=== PATIENT | female | born 1945 | race Caucasian/White ===

== ENCOUNTER 2017-03-04 13:26 | Outpatient (CLI) | payer MEDICARE, OTHER ==
--- NOTE | 2017-03-04 14:52 | RAD ---
PA AND LATERAL CHEST RADIOGRAPH: Date: 03-04-17 History: Dyspnea. Comparison: 05-28-15 FINDINGS: Post-surgical changes related to median sternotomy and cardiac valve replacement. Cardiac silhouette is mildly enlarged. Pulmonary vasculature is within normal limits. Lungs remain clear. There has been no interval change from the prior exam. IMPRESSION: No acute cardiopulmonary process. POS: [facility]
== END 2017-03-04 13:27 | disposition home or self-care (01) ==
LOC: RAD 13:26
PROVIDERS: ATTEND Internal Medicine Critical Care Medicine
DX: R06.00 Dyspnea, unspecified (principal)
CPT/HCPCS: 71020

== ENCOUNTER 2017-07-15 09:08 | Outpatient (CLI) | payer MEDICARE, OTHER ==
--- NOTE | 2017-07-15 10:24 | RAD ---
LUMBAR SPINE THREE VIEWS: History: M54.16 Lumbar radiculopathy. Low back pain. Comparison: MRI 12-02-16 FINDINGS: There is moderate degenerative disease throughout the lumbar spine with degenerative disc space heigh t loss. Anterolisthesis of L4 over L5 approximately 4 mm in the neutral position with no significant translation with flexion or extension. No fracture. No malalignment. Laminectomy changes L3-5. IMPRESSION: 4 mm anterolisthesis of L4 over L5 without translation with flexion or extension. POS: [facility]
--- NOTE | 2017-07-15 11:24 | MRI ---
MRI LUMBAR SPINE WITHOUT CONTRAST: Date; 07/15/17 HISTORY: M54.16, lumbar radiculopathy. COMPARISON: Lumbar spine radiograph dated 07/15/17. MRI lumbar spine dated 12/02/16. FINDINGS: Kidneys appear to be slightly atrophic. The aortic contour is nonaneurysmal. No retroperitoneal adeno robert. No hydronephrosis. Conus medullaris terminates near the mid L1 vertebral body. Levels are as follows: T12-L1: Low grade circumferential disc bulge. No neural foraminal or spinal canal narrowing. L1-2: Mild degenerative disc space height loss. Circumferential disc bulge. Mild facet arthrosis. Spinal ca nal at this level measures over 1.0 cm. No significant neural foraminal narrowing. L2-3: Moderate to severe degenerative disc space height loss. Circumferential disc bulge. Moderate facet ar throsis. Moderate bilateral neural foraminal narrowing. There are laminectomy changes at this level. L3-4: Moderate degenerative disc space height loss. Circumferential disc bulge. There is moderate to severe bilateral neural foraminal narrowing. This is predominantly due to hypertrophic facet changes. The s nina canal is not significantly narrowed. L4-5: There is anterolisthesis of L4 over L5. Severe facet arthropathy. Moderate to severe bilateral neural foraminal narrowing with abutment of the exiting left nerve root. Low grade anterolisthesis. L5-S1: Moderate facet arthropathy. Moderate to severe facet arthrosis. The facet changes cause moderate to s evere bilateral neural foraminal narrowing. No significant spinal canal narrowing. IMPRESSION: 1. Multifocal neural foraminal narrowing as described above. 2. Low grade L4 over L5 anterolisthesis. 3. No significant spinal canal narrowing. POS: [facility]
== END 2017-07-15 09:09 | disposition home or self-care (01) ==
LOC: TBSIIMAG 09:08
PROVIDERS: ATTEND Anesthesiology Pain Medicine
DX: M54.16 Radiculopathy, lumbar region (principal); M43.16 Spondylolisthesis, lumbar region; M99.83 Other biomechanical lesions of lumbar region
CPT/HCPCS: 72100; 72148

== ENCOUNTER 2017-07-27 09:08 | Outpatient (CLI) | payer MEDICARE, OTHER | END 2017-07-27 09:09 | disposition home or self-care (01) | LOC: BICMAMMO 09:08 | PROVIDERS: ATTEND Obstetrics & Gynecology | DX: Z12.31 Encounter for screening mammogram for malignant neoplasm of breast (principal); Z80.3 Family history of malignant neoplasm of breast | CPT/HCPCS: 77063; 77067 ==

== ENCOUNTER 2018-04-04 08:11 | Outpatient (CLI) | payer MEDICARE, OTHER ==
--- NOTE | 2018-04-04 10:23 | MRI ---
LEFT HIP MRI WITHOUT IV CONTRAST: History: Trochanteric bursitis, left hip, left hip pain. FINDINGS: Total right hip replacement changes are noted. There are some arthrosis changes involving the left hi p joint with some generalized articular cartilage loss. Poorly defined significantly degenerated labr um. Some subchondral marrow signal of the femoral head with an appearance that could suggest insuffic iency type fracture with some marrow signal extending into the femoral neck. There is some fatty davila ge with mild associated edema within the gluteus minimum muscle, possibly mild strain versus some den otation change. Tendinopathy of the gluteus minimus and gluteus medius tendon insertions. Very mild f at stranding in the region of the trochanteric bursa but no significant abnormal fluid. Moderate join t effusion. IMPRESSION: Left hip joint space loss, evidence for arthrosis. Minimal focal subchondral abnormal signal, evidenc e for an insufficiency type fracture with some abnormal marrow signal extending into the femoral neck . Fatty change in the gluteus minimus muscle with some minimal associated increased STIR signal, poss ibly mild stranding versus some denotation change. Very mild fat stranding in the trochanteric bursal region without evidence for abnormal bursal fluid. Moderate joint effusion. POS: [facility]
== END 2018-04-04 08:12 | disposition home or self-care (01) ==
LOC: BICMRI 08:11
PROVIDERS: ATTEND Anesthesiology Pain Medicine
DX: M70.62 Trochanteric bursitis, left hip (principal); M16.12 Unilateral primary osteoarthritis, left hip; M25.452 Effusion, left hip; M84.459A Pathological fracture, hip, unspecified, initial encounter for fracture

== ENCOUNTER 2018-11-22 13:13 | Inpatient (IN) | payer MEDICARE, OTHER ==
--- NOTE | 2018-11-22 15:01 | RAD ---
RIGHT HIP 2 VIEWS: Date: 11/22/18 HISTORY: Fall. Right hip pain. FINDINGS/IMPRESSION: There are postop changes of total hip arthroplasty in good position and alignment. No fracture or dis location identified. POS: [facility]
[2018-11-22] MEDS ORDERED: Acetaminophen 500 MG TAB ONE (15:05)
--- NOTE | 2018-11-22 15:43 | RAD ---
AP PELVIS: HISTORY: Fall, right hip pain. FINDINGS/IMPRESSION: A right total hip arthroplasty is present in good position and alignment. There are degenerative jessica nges in the lower lumbar spine and the left hip joint. No acute fracture or dislocation is identifie d. POS: [facility]
[2018-11-22 15:57] LABS: #Eosinphils 0.4 thou/uL (0.0-0.7); #Monocytes 0.6 thou/uL (0.11-0.59); #Neutrophils 8.1 thou/uL (1.40-6.50); %Basophils 0.2 % (0.0-1.0); %Eosinophils 3.6 % (0.0-10.0); %Lymphocytes 9.9 % (21.0-51.0); %Monocytes 6.1 % (0.0-10.0); %Neutrophils 80.3 % (42.0-75.0); Hemoglobin 11.2 g/dL (12.0-16.0); Mean Corpuscular HGB CONC 32.5 g/dL (32.0-36.0); Mean Corpuscular Hemoglobin 30.2 pg (27.0-31.0); Mean Corpuscular Volume 92.7 fL (78.0-98.0); Platelet Count 168 thou/uL (130-400); RBC Distribution Width 13.6 % (11.5-14.5); Red Blood Cell (RBC) Count 3.72 mill/uL (4.20-5.40); White Blood Cell (WBC) Count 10.1 thou/uL (4.8-10.8)
[2018-11-22 16:20] LABS: ALT (SGPT) 17 U/L (8-55); AST (SGOT) 22 U/L (5-34); Albumin 3.9 g/dL (3.4-4.8); Alkaline Phosphatase 64 U/L (40-150); Anion Gap 13 mmol/L (10-20); BUN (Urea Nitrogen) 37 mg/dL (9.8-20.1); Bilirubin, Total 0.3 mg/dL (0.2-1.2); Calc. Creatinine Clearance 0 mL/min (70-130); Calcium 9.5 mg/dL (7.8-10.44); Carbon Dioxide 26 mmol/L (23-31); Chloride 104 mmol/L (98-107); Estimated GFR-MDRD 26; Globulin 2.7 g/dL (2.4-3.5); Glucose 98 mg/dL (83-110); Potassium 4.7 mmol/L (3.5-5.1); Protein, Total 6.6 g/dL (6.0-8.3); Sodium 138 mmol/L (136-145)
--- NOTE | 2018-11-22 18:22 | CT ---
CT right hip noncontrast HISTORY: Fall. Right hip injury. Findings: There is less than 3 mm greatest displacement involving a comminuted fracture of the latera l aspect of the right upper femur, primarily the greater trochanter. It is at the level of the femoral stem component, although there is no perihardware lucency. Acetabular component is well-seate d. IMPRESSION: Comminuted minimally displaced right proximal femur fracture involving primarily the grea ter trochanter, around the femoral component of the hip prosthesis without evidence of hardware loosening. Findings were called to Dr. Xiao in the emergency department at 1817 hours. Code CR. Transcribed Date/Time: 11/22/2018 6:44 PM
[2018-11-22] MEDS ORDERED: Morphine 4 MG/ML VIAL ONE (18:27)
--- NOTE | 2018-11-22 18:48 | RAD ---
Right knee 4 views HISTORY: Fall. Knee injury. FINDINGS: Joint spaces are preserved. Osseous structures are demineralized. No acute fracture,, or fl uid distention of the suprapatellar bursa. IMPRESSION: No acute osseous abnormalities are demonstrated.
[2018-11-22] MEDS ORDERED: Dextrose 50% Abboject 50 ML SYRINGE SLOW IVP PRN (21:39)
[2018-11-22] MEDS ORDERED: hydrALAZINE 20 MG/ML VIAL SLOW IVP PRN (21:39)
[2018-11-22] MEDS ORDERED: Dextrose 5% in Water 1,000 ML IV PRN (21:39)
[2018-11-22] MEDS ORDERED: HumaLOG 300 UNITS/3 ML VIAL SC PRN (21:39)
[2018-11-22] MEDS ORDERED: traMADol HCl 50 MG TAB PO PRN (21:46)
[2018-11-22] MEDS ORDERED: Gabapentin 300 MG CAP PO SCH (21:48)
[2018-11-22] MEDS ORDERED: Sodium Chloride 0.9% 500 ML IV SCH (22:00)
[2018-11-22] MEDS ORDERED: Acetaminophen 325 MG TAB PO SCH (22:00)
[2018-11-22] MEDS ORDERED: traMADol HCl 50 MG TAB PO SCH (22:00)
[2018-11-22] MEDS ORDERED: Sodium Chloride 0.9% 1,000 ML IV SCH (22:00)
[2018-11-22] MEDS ORDERED: Acetaminophen/Codeine 30-300mg Tablet PO SCH (22:00)
--- NOTE | 2018-11-22 22:51 | HP ---
HISTORY OF PRESENT ILLNESS: Ms. Burger is a 73-year-old female, coming to the ER for evaluation of a mechanical fall next to a pool. The patient reports she has been ambulating well before the fall. She went to the pool today and she stripped and fell on her right side. She did not hit her head or loss of consciousness. After the fall , she felt excruciating pain of the right femur and she could not walk and bearing weight. She went to the ER. Upon arrival, she was awake and alert. GCS 15. Vital signs stable. Complain of pain of the right hip. Patient relates no pain in other location. PAST MEDICAL HISTORY: The patient has history of diabetes, hypertension. PAST SURGICAL HISTORY: Right hip replacement 2 years ago, ankle fracture a few years ago with ORIF bilateral, replacement of mitral valve and with no anticoagulation, 5 years ago. SOCIAL HISTORY: The patient lives at home with her . The patient ambulates well independently. The patient is retired and she denies using drugs, alcohol , or smoking. CURRENT MEDICATION: REVIEW OF SYSTEMS: Noncontributory except per HPI. PHYSICAL EXAMINATION: GENERAL: The patient is lying down in bed, comfortable, with no acute respiratory distress. SKIN: [place], warm. VITAL SIGNS: Heart rate 74, blood pressure 102/70, O2 saturation 95% on room air, respiratory rate 18, and temperature 98.9. HEENT: Atraumatic. No bruising. NECK: Trachea midline. No bruising. Nontender. CHEST: Nontender. No deformity. Equal breath sounds, clear. BREASTS: Atraumatic. HEART: Regular rate and rhythm. ABDOMEN: Atraumatic, nontender. No mass. Normal bowel sounds. PELVIS: Stable, nontender. No deformity. BACK: Nontender. No deformity. EXTREMITIES: Right hip pain to touch. Limited range of motion due to pain. NEUROVASCULAR: Intact x4. NEUROLOGIC: No focal neurologic deficits. DIAGNOSES: 1. Status post mechanical ground level fall. 2. Right femur fracture around previous prosthetic right hip replacement. 3. History of diabetes, hypertension, depression, mitral valve replacement with Biovalve with no anticoagulation. PLAN: The patient was discussed with Dr. Campuzano and Dr. Lee. The patient had right hip replacement with Dr. Campuzano [address] Campuzano anticipated nonoperative treatment at this time with pain control. Dr. Campuzano requested admit to Trauma Service. The patient will be admitted to nonsurgical floor for pain control and waiting for placement in rehabilitation facility. ER doctor did call rehab prior to calling Trauma Service. Rehab is full at the moment. Initiate pain control, initiate DVT/gastritis prophylaxis. The patient will be working with PT/OT tomorrow to initiate procedure for placement in rehabilitation facility. Job ID: [id number] [facility]
[2018-11-22] MEDS ORDERED: Morphine 4 MG/ML VIAL SLOW IVP ONE (23:00)
[2018-11-23] MEDS ORDERED: HumaLOG 300 UNITS/3 ML VIAL SC PRN (00:15)
[2018-11-23] MEDS: traMADol HCl 50 MG TAB PO SCH ×4 (01:12→12:19)
[2018-11-23 02:12] VITALS: BMI 30.7
[2018-11-23 05:31] LABS: #Eosinphils 0.3 thou/uL (0.0-0.7); #Monocytes 0.7 thou/uL (0.11-0.59); #Neutrophils 5.2 thou/uL (1.40-6.50); %Basophils 0.3 % (0.0-1.0); %Eosinophils 3.5 % (0.0-10.0); %Lymphocytes 14.5 % (21.0-51.0); %Monocytes 9.2 % (0.0-10.0); %Neutrophils 72.5 % (42.0-75.0); Hemoglobin 10.4 g/dL (12.0-16.0); Mean Corpuscular HGB CONC 32.8 g/dL (32.0-36.0); Mean Corpuscular Hemoglobin 31.1 pg (27.0-31.0); Mean Corpuscular Volume 94.6 fL (78.0-98.0); Mean Platelet Volume 7.6 fL (7.4-10.4); Platelet Count 147 thou/uL (130-400); RBC Distribution Width 13.6 % (11.5-14.5); Red Blood Cell (RBC) Count 3.34 mill/uL (4.20-5.40); White Blood Cell (WBC) Count 7.2 thou/uL (4.8-10.8)
[2018-11-23 05:41] LABS: Phosphorus 4.5 mg/dL (2.3-4.7)
[2018-11-23 05:53] LABS: Anion Gap 14 mmol/L (10-20); BUN (Urea Nitrogen) 43 mg/dL (9.8-20.1); Calc. Creatinine Clearance 29 mL/min (70-130); Calcium 8.3 mg/dL (7.8-10.44); Carbon Dioxide 25 mmol/L (23-31); Chloride 106 mmol/L (98-107); Estimated GFR-MDRD 23; Glucose 144 mg/dL (83-110); Potassium 4.6 mmol/L (3.5-5.1); Sodium 140 mmol/L (136-145)
[2018-11-23] MEDS: Acetaminophen 325 MG TAB PO SCH ×2 (05:53→12:19)
[2018-11-23] MEDS ORDERED: Levothyroxine Sodium 112 MCG TAB PO SCH (06:00)
[2018-11-23] MEDS ORDERED: Sodium Chloride 0.9% 500 ML IV SCH (07:45)
[2018-11-23] MEDS ORDERED: Senokot S 8.6-50 MG TAB PO SCH (09:00)
[2018-11-23] MEDS ORDERED: hydrALAZINE 25 MG TAB PO SCH (09:00)
[2018-11-23] MEDS ORDERED: Famotidine 20 MG TAB PO SCH (09:00)
[2018-11-23] MEDS ORDERED: Carvedilol 6.25 MG TAB PO SCH (09:00)
[2018-11-23] MEDS ORDERED: Polyethylene Glycol 3350 17 GM Packet PO SCH (09:00)
[2018-11-23] MEDS ORDERED: Cyclobenzaprine 10 MG TAB PO SCH (09:00)
[2018-11-23] MEDS ORDERED: Aspirin 81 mg Enteric Coated Tablet PO SCH (09:00)
[2018-11-23] MEDS ORDERED: Gabapentin 300 MG CAP PO SCH (09:00)
[2018-11-23] MEDS ORDERED: Saccharomyces boulardii 250 MG CAP PO SCH (09:00)
[2018-11-23] MEDS ORDERED: Amlodipine 5 MG TAB PO SCH (09:00)
[2018-11-23 11:35] VITALS: BP 129/77; TEMP 98.6
--- NOTE | 2018-11-23 18:00 | CON ---
DATE OF CONSULTATION: 11/23/2018 HISTORY OF PRESENT ILLNESS: Ms. Burger is a 73-year-old female who I performed a right total hip replacement 2 years ago. The patient was in a swimming pool, she got out of the swimming pool, slipped and fell onto her right hip. She was brought to the emergency room because she was unable to ambulate and because of the pain. X-ray showed a fracture of the greater trochanter of the right hip. The fracture was in good alignment. The patient was admitted for pain control and to be placed in the rehab. PHYSICAL EXAMINATION: The patient is tender over the lateral aspect of the right hip. Any attempts moving the right hip causes pain. The right lower extremity is neurovascularly intact. IMPRESSION: Nondisplaced greater trochanteric fracture of the right hip and a previous right total hip replacement. PLAN: The patient does not require surgery for this. We would allow the fracture to heal. She will need to go to rehab to relearn how to get out of bed and ambulate. The patient may weightbear as tolerated on the right lower extremity. She will follow up in my office after discharge from rehab. Job ID: [id number]
[2018-11-23] MEDS ORDERED: Rosuvastatin 20 MG TAB PO SCH (21:00)
[2018-11-23] MEDS ORDERED: Insulin Glargine 60 UNITS in Pre-Filled Syringe 1 EACH SC SCH (21:00)
[2018-11-23] MEDS ORDERED: Non-Formulary Item 1 EACH (Insulin Glargine,Hum.Rec.Anlog [Lantus Solostar] 60 UNIT) SQ SCH (21:00)
--- NOTE | 2018-11-24 05:22 | DIS ---
DATE OF ADMISSION: 11/22/2018 DATE OF DISCHARGE: 11/23/2018 ADMISSION DIAGNOSES: 1. Status post ground level fall. 2. Right proximal femur fracture, periprosthetic. 3. History of diabetes, hypertension, depression, mitral valve replacement with Biovalve with no anticoagulation. CONSULTATIONS: Dr. Campuzano. PROCEDURES: None. SUMMARY: The patient is a 73-year-old woman, who was reportedly in her pool. When she actually in her pool, she slipped and fell landing on her right hip. The patient was brought to the emergency department, where she underwent evaluation and examination and was noted to have the above injury. After discussion with Dr. Campuzano, the surgeon who had done her right hip surgery, he noted that the greater trochanteric fracture was away from the prosthetic device and would only require nonoperative management with pain control and physical therapy. Arrangements were made for the patient to go to inpatient rehab. At the time of discharge, the patient's pain was controlled. She was tolerating a diet and she had begun working with Physical and Occupational Therapy. The patient will follow up with Dr. Campuzano in 2 to 3 weeks, sooner as needed. Job ID: [id number]
== END 2018-11-23 14:00 | DRG 536 ==
LOC: ERS 13:13 → SURG A 21:39
PROVIDERS: ADMIT Specialist; ATTEND Specialist
DX: S72.144A Nondisplaced intertrochanteric fracture of right femur, initial encounter for closed fracture (principal); M97.01XA Periprosthetic fracture around internal prosthetic right hip joint, initial encounter; E11.9 Type 2 diabetes mellitus without complications; I10 Essential (primary) hypertension; Z96.641 Presence of right artificial hip joint; Z98.890 Other specified postprocedural states; F32.9 Major depressive disorder, single episode, unspecified; Z95.2 Presence of prosthetic heart valve; W01.0XXA Fall on same level from slipping, tripping and stumbling without subsequent striking against object, initial encounter; Y93.89 Activity, other specified; Y92.34 Swimming pool (public) as the place of occurrence of the external cause
CPT/HCPCS: 36415; 36416; 72170; 80048; 80053; 83735; 84100; 85025; 94640; J2270; J7620

== ENCOUNTER 2018-11-26 22:03 | Inpatient (IN) | payer MEDICARE, OTHER ==
--- NOTE | 2018-11-26 22:34 | RAD ---
EXAM: Single view of the chest HISTORY: Shortness of breath COMPARISON: 11/25/2018 FINDINGS: Single view of the chest shows an enlarged but stable cardiomediastinal silhouette. The pa tient is status post sternotomy. There is no evidence of consolidation, mass, or pleural effusion. The bones are unremarkable. IMPRESSION: No evidence of acute cardiopulmonary disease
[2018-11-26 22:41] LABS: #Eosinphils 0.3 thou/uL (0.0-0.7); #Lymphocytes 0.9 thou/uL (1.20-3.40); #Monocytes 0.6 thou/uL (0.11-0.59); #Neutrophils 4.9 thou/uL (1.40-6.50); %Basophils 0.3 % (0.0-1.0); %Eosinophils 5.1 % (0.0-10.0); %Lymphocytes 13.1 % (21.0-51.0); %Monocytes 9.4 % (0.0-10.0); %Neutrophils 72.1 % (42.0-75.0); Hemoglobin 9.1 g/dL (12.0-16.0); Mean Corpuscular HGB CONC 31.7 g/dL (32.0-36.0); Mean Corpuscular Volume 94.6 fL (78.0-98.0); Mean Platelet Volume 7.5 fL (7.4-10.4); Platelet Count 164 thou/uL (130-400); RBC Distribution Width 13.3 % (11.5-14.5); Red Blood Cell (RBC) Count 3.02 mill/uL (4.20-5.40); White Blood Cell (WBC) Count 6.8 thou/uL (4.8-10.8)
[2018-11-26 22:58] LABS: ALT (SGPT) 19 U/L (8-55); AST (SGOT) 21 U/L (5-34); Albumin 3.5 g/dL (3.4-4.8); Alkaline Phosphatase 73 U/L (40-150); Anion Gap 12 mmol/L (10-20); BUN (Urea Nitrogen) 37 mg/dL (9.8-20.1); Bilirubin, Total 0.4 mg/dL (0.2-1.2); CK (CPK) 278 U/L (29-168); Calc. Creatinine Clearance 0 mL/min (70-130); Calcium 8.9 mg/dL (7.8-10.44); Carbon Dioxide 27 mmol/L (23-31); Chloride 100 mmol/L (98-107); Estimated GFR-MDRD 23; Globulin 2.9 g/dL (2.4-3.5); Glucose 209 mg/dL (83-110); Potassium 4.5 mmol/L (3.5-5.1); Protein, Total 6.4 g/dL (6.0-8.3); Sodium 134 mmol/L (136-145)
[2018-11-26 23:15] LABS: CKMB 2.3 ng/mL (0-6.6)
[2018-11-26 23:38] LABS: Bacteria/HPF None Seen HPF (None Seen); Bilirubin Negative (Negative); Blood, Urine Negative (Negative); Clarity Clear (Clear); Glucose, Urine (Dipstick) Normal (Negative); Leukocyte 250 Leu/uL (Negative); Nitrite Negative (Negative); Protein, Urine (Dipstick) 10 mg/dL (Neg-Trace); RBC/HPF None Seen HPF (0-3); Squamous Epithelial 0-3 HPF (0-3); Urobilinogen Normal mg/dL (Less than 2)
--- NOTE | 2018-11-26 23:58 | CT ---
EXAM: CT brain without contrast HISTORY: Altered mental status with slurred speech COMPARISON: 11/25/2016 TECHNIQUE: Multiple contiguous axial images were obtained and a CT of the brain without contrast. FINDINGS: There are scattered hypodensities in the subcortical and periventricular white matter consi stent with small vessel ischemic disease. There is no evidence of hydrocephalus, intracranial hemorrhage, or extra-axial fluid collection. The calvarium and overlying soft tissues are unremarkable. The visualized paranasal sinuses and masto id air cells are well aerated. IMPRESSION: No evidence of acute intracranial abnormality
[2018-11-27 02:23] VITALS: BMI 33.3
[2018-11-27 02:28] LABS: Troponin I 0.027 ng/mL (< 0.028)
[2018-11-27] MEDS ORDERED: Heparin 25,000 units/D5W 500 ML IVPB SCH (02:45)
[2018-11-27] MEDS ORDERED: Heparin 10,000 UNITS/ 10 ML VIAL SLOW IVP SCH (02:45)
[2018-11-27 02:49] LABS: Actual Bicarbonate (HCO3a) 27.1 mEq/L (22-28); Base Excess (BEa) 1.4 mEq/L (-2.0 to +3.0); CO2 Tension 47.9 mmHg (35.0-45.0); Calcium, Ionized 1.17 mmol/L (1.12-1.30); Carboxyhemoglobin (COHb) 0.8 gm% (0.0-3.0); Hemoglobin (Hb) 9.7 g/dL (12.0-16.0); O2 Tension (PaO2) 68.8 mmHg (> 70.0); Potassium - ABG Lab 4.61 mmol/L (3.70-5.30); pH, Arterial 7.37 (7.35-7.45)
[2018-11-27 02:51] LABS: ALV-art Gradient 99.485 (0-20); Puncture Site LRA
[2018-11-27] MEDS ORDERED: Dextrose 50% Abboject 50 ML SYRINGE SLOW IVP PRN (02:59)
[2018-11-27] MEDS ORDERED: HumaLOG 300 UNITS/3 ML VIAL SC PRN (02:59)
[2018-11-27] MEDS ORDERED: Dextrose 5% in Water 1,000 ML IV PRN (02:59)
[2018-11-27 03:35] LABS: Hemoglobin 9.1 g/dL (12.0-16.0); Platelet Count 169 thou/uL (130-400)
[2018-11-27 04:05] LABS: Troponin I 0.023 ng/mL (< 0.028)
[2018-11-27] MEDS ORDERED: traZODone HCl 50 MG TAB PO PRN (10:26)
[2018-11-27] MEDS ORDERED: Acetaminophen 500 MG TAB PO PRN (10:26)
[2018-11-27] MEDS: traMADol HCl 50 MG TAB PO SCH ×2 (12:06→18:36)
[2018-11-27] MEDS: Phenazopyridine HCl 97.5 MG TABLET PO SCH ×2 (12:08→18:30)
[2018-11-27 12:22] LABS: PTT Greater than 250.0 SEC (22.9-36.1)
[2018-11-27] MEDS ORDERED: hydrALAZINE 20 MG/ML VIAL SLOW IVP PRN (12:26)
[2018-11-27] MEDS ORDERED: Carvedilol 6.25 MG TAB PO SCH (12:45)
[2018-11-27] MEDS ORDERED: Gabapentin 300 MG CAP PO SCH (12:45)
[2018-11-27] MEDS ORDERED: Amlodipine 5 MG TAB PO SCH (12:45)
--- NOTE | 2018-11-27 13:53 | PDOC.HOSPP ---
- Subjective Encounter Date: 11/27/18 Encounter Time: 13:48 Subjective: Recently admitted here for a fall with fracture around the greater trochanter peripheral to the hip replacement prosthesis steph. Went to rehab, but having SOB and apparently had SaO2 in the 70's. She has been coughing. She has had dyspnea with minimal exertion for a while. She has seen Dr. Mcfadden in the past and had PFT's. She says she was diagnosed with seasonal asthma. Her daughter also reports that there are times when she (the patient) has been confused. She saw that again with this episode of hypoxia and now believes that the episodes were all likely to be related to hypoxia episodes. Patient has also had some prior problems with epistaxis. Had cautery. Had a small bit of epistaxis this morning. - Objective Vital Signs & Weight: Vital Signs (12 hours) Temp Pulse Resp BP BP Pulse Ox 11/27/18 13:30 82 11/27/18 13:29 148/66 H 11/27/18 12:50 98.4 F 82 16 189/87 H 99 11/27/18 08:16 97.8 F 81 16 173/91 H 99 11/27/18 08:00 99 11/27/18 05:30 98.6 F 76 18 159/77 H 98 Weight Weight 193 lb 12.581 oz Result Diagrams: 11/27/18 03:19 11/26/18 22:25 Additional Labs: Accuchecks 11/27/18 11/27/18 11/27/18 11:18 08:26 05:25 POC Glucose 336 H 266 H 246 H Hospitalist ROS - Medication Medications: Active Medications Generic Name Dose Route Start Last Admin Trade Name Freq PRN Reason Stop Dose Admin Amlodipine Besylate 2.5 mg 11/27/18 12:45 11/27/18 13:30 Norvasc PO 11/27/18 14:00 2.5 mg NOW FILIPPO Administration Carvedilol 6.25 mg 11/27/18 12:45 11/27/18 13:29 Coreg PO 11/27/18 14:00 6.25 mg NOW FILIPPO Administration Gabapentin 600 mg 11/27/18 12:45 11/27/18 13:29 Neurontin PO 11/27/18 14:00 600 mg NOW FILIPPO Administration Heparin Sodium (Porcine) 0 units 11/27/18 02:45 11/27/18 04:59 Heparin 1,000 Units/Ml (10 Ml) SLOW IVP 7,032 unit ASDIR FILIPPO Administration Protocol Heparin Sodium/Dextrose 500 mls @ 0 mls/hr 11/27/18 02:45 11/27/18 05:02 Heparin 25,000 Units/D5w 500 Ml IVPB 500 mls INF FILIPPO Administration Protocol Per Protocol Levofloxacin 750 mg/ Device 150 mls @ 100 mls/hr 11/27/18 03:00 11/27/18 03: 34 IVPB 150 mls Q2D FILIPPO Administration Insulin Human Lispro 0 units 11/27/18 02:59 11/27/18 12:08 Humalog SC 5 units .MILD SLIDING SCALE PRN Administration Mild Correctional Scale Phenazopyridine HCl 97.5 mg 11/27/18 13:00 11/27/18 12:08 Azo Standard PO 97.5 mg PC FILIPPO Administration Sertraline HCl 50 mg 11/27/18 12:45 11/27/18 13:30 Zoloft PO 11/27/18 14:00 50 mg NOW FILIPPO Administration Tramadol HCl 50 mg 11/27/18 12:00 11/27/18 12:06 Ultram PO Not Given Q6HR FILIPPO - Exam General Appearance: NAD, awake alert General - other findings: Obese Neck: supple Heart: RRR, no murmur, no gallops Respiratory: CTAB, rales, wheezes Gastrointestinal: soft, non-tender, non-distended, normal bowel sounds Extremities: no cyanosis, no clubbing, no edema Skin: normal turgor Musculoskeletal: normal tone, normal strength Psychiatric: normal affect, normal behavior, A&O x 3 Hosp A/P (1) Acute respiratory failure with hypoxia Code(s): J96.01 - ACUTE RESPIRATORY FAILURE WITH HYPOXIA Status: Acute (2) Asthma Code(s): J45.909 - UNSPECIFIED ASTHMA, UNCOMPLICATED Status: Acute (3) Hip fracture Code(s): S72.009A - FRACTURE OF UNSP PART OF NECK OF UNSP FEMUR, INIT Status: Acute (4) DM2 (diabetes mellitus, type 2) Status: Acute (5) HLD (hyperlipidemia) Code(s): E78.5 - HYPERLIPIDEMIA, UNSPECIFIED Status: Acute (6) S/P hip replacement Code(s): Z96.649 - PRESENCE OF UNSPECIFIED ARTIFICIAL HIP JOINT Status: Acute (7) CKD (chronic kidney disease), stage IV Code(s): N18.4 - CHRONIC KIDNEY DISEASE, STAGE 4 (SEVERE) Status: Acute - Plan Appears to have some reactive airway disease. On nebs. Will make scheduled as she cannot tell when she is wheezing. Avoiding steroids given the DM and the fracture. VQ scan pending. On heparin gtt. Discussed with Dr. Mcfadden.
[2018-11-27] MEDS: Cyclobenzaprine 10 MG TAB PO SCH ×2 (14:35→21:17)
[2018-11-27 14:58] LABS: PTT 128.9 SEC (22.9-36.1)
--- NOTE | 2018-11-27 15:27 | CON ---
DATE OF CONSULTATION: 11/27/2018 CONSULTING PHYSICIAN: Dr. Duran. REASON FOR CONSULTATION: Shortness of breath and hypoxemia. HISTORY OF PRESENT ILLNESS: This is a 73-year-old female with a known history of chronic persistent asthma, who presents with increasing dyspnea. She was recently hospitalized with a right upper leg fracture of a hip prosthesis. She was sent to rehab. She subsequently became short of breath and was sent back. PAST MEDICAL HISTORY: 1. Chronic persistent asthma. 2. Question of hypersensitivity pneumonitis. 3. Previous DVT. 4. Diabetes mellitus. 5. Hypertension. PAST SURGICAL HISTORY: 1. Right hip replacement. 2. Ankle fracture. 3. Mitral valve replacement, porcine. SOCIAL HISTORY: Nonsmoker. Does not consume alcohol or use illicit drugs. MEDICATIONS: Prior to admission; 1. She is supposed to be taking Symbicort 160/4.5 two puffs twice daily, but is not doing that regularly. 2. She is on DuoNeb every 4 hours as needed, but does not use that regularly. Other medications include: 1. Guaifenesin. 2. Loperamide. 3. Tums. 4. Tylenol. 5. Trazodone. 6. Simethicone. 7. Lipitor. 8. Norvasc. 9. Senna. 10. MiraLAX. 11. Mucinex. 12. Humalog insulin. 13. Neurontin. 14. Flexeril. 15. Coreg. 16. Ultram. 17. Zoloft. 18. Levothyroxine. 19. Lantus insulin. See doses under medication list in chart. REVIEW OF SYSTEMS: Twelve-point review of system otherwise negative. PHYSICAL EXAMINATION: VITAL SIGNS: O2 sats 99% on 2 L, temperature 98.4, pulse 82, blood pressure 140/66, respiratory rate 16. GENERAL: She is awake and alert, in no distress. HEENT: Pupils are reactive. Sclerae anicteric. Oropharynx clear. NECK: No adenopathy or JVD. LUNGS: She has bilateral moderate expiratory wheezing with prolonged expiratory phase. CARDIAC: S1, S2. Regular without murmur. ABDOMEN: Soft, nontender. EXTREMITIES: No clubbing, cyanosis, or edema. LABORATORY DATA: White blood cell count 6.8, hemoglobin 9.1, hematocrit 28.9, platelet count 169. PTT is greater than 250. PH 7.37, pCO2 of 47, pO2 of 68. Sodium 134, potassium 4.5, chloride 100, CO2 of 27, BUN 37, creatinine 2.1, glucose 209. BNP 397. IMAGING STUDIES: Her chest x-ray is really nondescript. ASSESSMENT: 1. Asthma with exacerbation. 2. Rule out pulmonary embolism. 3. Chronic renal insufficiency secondary to diabetes mellitus. PLAN: 1. Treat the asthma exacerbation with steroids, schedule bronchodilators, low-flow oxygen, and the Dulera. 2. Agree with ventilation-perfusion scan to rule out pulmonary embolism. 3. She is empirically anticoagulated, so we can rule that out. I will follow with you. Job ID: [id number]
--- NOTE | 2018-11-27 16:26 | NM ---
EXAM: Nuclear medicine VQ scan COMPARISON: Chest x-ray 11/26/2018 HISTORY: Shortness of breath and elevated d-dimer TECHNIQUE: A VQ scan was performed in standard fashion. Ventilation images were obtained using 14.5 m Ci of xenon-133. Perfusion images were obtained using 5.6 mCi of technetium 99m MAA. FINDINGS: Ventilation: Breath hold, equilibrium, and washout phases are unremarkable. No ventilatory defects ar e seen. No air trapping is seen. Perfusion: No small, medium, or large perfusion defects are seen. IMPRESSION: Normal VQ scan
[2018-11-27] MEDS: HumaLOG 300 UNITS/3 ML VIAL SC PRN ×2 (18:29→21:36)
[2018-11-27] MEDS: methylPREDNISolone Sod Succ 40 MG VIAL IVP SCH (18:30)
[2018-11-27] MEDS: Mometasone/Formoterol 120 PUFF INHALER INH SCH (19:46)
[2018-11-27] MEDS ORDERED: Aspirin 81 mg Enteric Coated Tablet PO SCH (21:00)
[2018-11-27] MEDS: Carvedilol 6.25 MG TAB PO SCH (21:13)
[2018-11-27] MEDS: guaiFENesin ER 600 MG TAB PO SCH (21:14)
[2018-11-27] MEDS: Senokot 8.6 MG TAB PO SCH (21:17)
[2018-11-27] MEDS: Insulin Glargine 65 UNITS in Pre-Filled Syringe 1 EACH SC SCH (21:35)
[2018-11-28] MEDS: traMADol HCl 50 MG TAB PO SCH ×5 (01:55→22:34)
[2018-11-28] MEDS: methylPREDNISolone Sod Succ 40 MG VIAL IVP SCH ×3 (01:55→17:42)
[2018-11-28] MEDS: Levothyroxine Sodium 112 MCG TAB PO SCH (06:20)
[2018-11-28] MEDS: HumaLOG 300 UNITS/3 ML VIAL SC PRN ×3 (06:29→17:37)
[2018-11-28] MEDS: Mometasone/Formoterol 120 PUFF INHALER INH SCH ×2 (06:33→19:23)
--- NOTE | 2018-11-28 08:10 | HP ---
PRIMARY CARE DOCTOR: Keron Negron MD CODE STATUS: Full code. TIME OF EVALUATION: 2:40 a.m. CHIEF COMPLAINT: Shortness of breath. HISTORY OF PRESENT ILLNESS: This is a 73-year-old female patient with a recent fall. Couple of days ago, patient had comminuted minimally displaced fracture on the right femur with no need for any surgical intervention and she was sent to rehab. Patient has been there for two days. As per family member, she has been confused, having some delirium, some hallucinations with no clear triggers, no alleviating factors. Of note patient was reported to have saturation in the 70s today. For that reason, she had been sent to the hospital. The workup as of now has been negative, except for the urine that was positive and low-grade fever. Also, D-dimer has been positive and obviously due to recent fall, patient is at risk for DVT and pulmonary embolism. Chest x-ray is clear so far. Patient was examined at bedside. Patient is arousal, but seems to be confused. Can answer to very simple orientation questions. Symptoms are [id number]. REVIEW OF SYSTEMS: Done with the help of the daughters, was negative with no other systems reported positive. PAST MEDICAL HISTORY: Positive for; 1. Diabetes, type 2. 2. Hypothyroidism. 3. Hyperlipidemia. 4. High cholesterol. 5. Hypertension. 6. Osteoarthritis. SURGICAL HISTORY: Heart valve replacement, bypass of 2 veins, back surgery, hip replacement, and right ankle replacement. PSYCHIATRIC HISTORY: No previous psych history. FAMILY HISTORY: Reviewed and non contributory for current presentations SOCIAL HISTORY: No alcohol, no drugs, no smoking history. ALLERGIES: KNOWN ALLERGIES TO CODEINE AND PENICILLINS. MEDICATIONS: Reported medications; 1. Lansoprazole. 2. Humalog. 3. Aspirin. 4. Gabapentin. 5. Sertraline. 6. Crestor. 7. Levothyroxine. 8. Lantus SoloStar. 9. Carvedilol. PHYSICAL EXAMINATION: VITAL SIGNS: On presentation, blood pressure 134/72 with heart rate 82, respiratory rate was 24, temperature 100.0, pain was 3/10, and oxygen saturation was 95% on 3 L. GENERAL APPEARANCE: The patient is sleeping during my examination, but when she is aroused, she can answer simple questions and she is oriented to simple questions x3. HEENT: Eyes; normal. ENT; moist oral mucosa. Anicteric. No JVD. RESPIRATORY: Bilateral air entry. No rales. No wheezes. Symmetric expansion. CARDIOVASCULAR: Normal rate regular rhythm. No murmurs. No gallop. No edema. ABDOMEN: Soft. Normal bowel sounds. MUSCULOSKELETAL: Baseline range of motion and strength. Patient has decreased mobility after a fall, still pain in the right shoulder and right hip. NEUROLOGIC: Unable to fully explore. Patient is lethargic. No evidence of any new focal weakness at this point. PSYCH: Unable to fully explore. Patient seems to be oriented to simple questions. IMAGING: EKG was reviewed. The patient has normal sinus rhythm with a rate of 81 with W[place] 158, QRS 90, QT corrected 455. Chest x-ray was done today and showed no acute cardiopulmonary disease. The brain CT was done and showed no evidence of acute intracranial abnormalities. LABORATORY DATA: Labs were done, showed the patient has a white count of 6.8, hemoglobin 9.1, MCV 94.6, and platelet count 164. D-dimer 3.9. Blood gas; pH was 7.37, pCO2 of 47.9, and oxygen 68.8. The patient was on nasal cannula with inspired oxygen of 32%. Chemistry; sodium 134; potassium 4.5; chloride 100; carbon dioxide 27; anion gap 12; BUN 37 with creatinine 2.0, previous admission was 1.85; GFR 23; glucose 209; calcium 9.9; and total bilirubin 0.4. LFTs were negative. CK 278; troponin 0.040, next one 0.027. Beta natriuretic peptide 397.6. Serum total protein 6.4, albumin 3.5, globulin 2.9, and albumin-globulin ratio is 1.2. Urine was done and it was positive with white count 11 to 20 and some leukocyte esterase. ASSESSMENT AND PLAN: The patient will be placed in the hospital with following medical problems: 1. Acute encephalopathy, unclear etiology, could be delirium secondary to metabolic encephalopathy from urinary tract infection. We will treat the underlying condition. We will keep family members as close of the patient as possible for orientation. 2. Urinary tract infection with positive urine. We will start patient on antibiotics. We will send cultures and adjust as per sensitivity. 3. Positive D-dimer. There is possibility for pulmonary embolism. Patient presented with shortness of breath and hypoxia today and she had a recent fall a couple of days ago. We will place the patient on heparin drip. Patient has kidney failure, so we cannot do the CT angio, however, we can do a V/Q scan to rule out pulmonary embolism. 4. Normocytic anemia. This is chronic, seems to be stable. We will monitor. No evidence of any acute bleeding at this point. This can be followed as outpatient. 5. History of diabetes, type 2 that is uncontrolled with blood sugar of 209, reconcile home medications. We will place the patient on sliding scale. 6. Hypothyroidism. Continue hormone replacement. We will check TSH due to change in mental status. We will adjust treatment as needed. 7. Hyperlipidemia. Low-cholesterol diet is advised. Reconcile home medications. 8. History of osteoarthritis, chronic, seems to be stable. We will treat symptomatically. 9. Right shoulder pain secondary to fall. We will treat the pain as needed with cautions as patient is little bit lethargic and we do not want to oversedate her with the pain medications. 10. Controlled hypertension. Reconcile home medications. Monitor and adjust as needed. Job ID: [id number] [facility]
[2018-11-28] MEDS ORDERED: Enoxaparin Sodium 30 MG/0.3 ML SYRINGE SC SCH ×2 (09:00)
[2018-11-28] MEDS: Gabapentin 300 MG CAP PO SCH (09:18)
[2018-11-28] MEDS: Amlodipine 5 MG TAB PO SCH (09:18)
[2018-11-28] MEDS: Sodium Chloride 0.9% 10 ML ONE ×3 (09:19→17:42)
[2018-11-28] MEDS: guaiFENesin ER 600 MG TAB PO SCH ×2 (09:19→21:37)
[2018-11-28] MEDS: Phenazopyridine HCl 97.5 MG TABLET PO SCH ×3 (09:19→17:31)
[2018-11-28] MEDS: Carvedilol 6.25 MG TAB PO SCH ×2 (09:19→21:37)
[2018-11-28] MEDS: Cyclobenzaprine 10 MG TAB PO SCH ×3 (09:20→22:33)
--- NOTE | 2018-11-28 11:01 | PRG ---
DATE OF SERVICE: 11/28/2018 SUBJECTIVE: The patient is breathing much better today. Ventilation-perfusion scan was negative. She has been weaned down to 1.5 L nasal cannula. She is a little concerned about her blood sugar jump while being on steroids. OBJECTIVE: VITAL SIGNS: Temperature is 98.5, pulse 73, blood pressure 155/77, and O2 saturation 98%. HEENT: Unremarkable. NECK: No adenopathy or JVD. LUNGS: No wheezing today. CARDIAC: S1 and S2, regular. ABDOMEN: Soft. EXTREMITIES: No edema. ASSESSMENT: Asthma/chronic obstructive pulmonary disease with exacerbation. PLAN: I will cut her steroid dose in half today. I think she can begin making arrangements to go back to rehab. She will continue bronchodilator medicine and controller medicine. Job ID: [id number]
--- NOTE | 2018-11-28 16:51 | CON ---
DATE OF CONSULTATION: 11/28/2018 CONSULTING PHYSICIAN: Jose Casey MD REASON FOR CONSULTATION: Chronic kidney disease. REASON FOR ADMISSION: Shortness of breath. HISTORY OF PRESENT ILLNESS: A 73-year-old female with history of type 2 diabetes, hyperlipidemia, hypertension, and CKD and followed by Dr. Batista, came to the hospital with shortness of breath. She has been evaluated and treated. Nephrology consulted for chronic kidney disease care and is mainly per family wishes. No nausea or vomiting. The patient's shortness of breath is better and she is tolerating PD well. PAST MEDICAL HISTORY: Positive for type 2 diabetes, hypothyroidism, hyperlipidemia, hypertension, and osteoarthritis. PAST SURGICAL HISTORY: Heart valve replacement, bypass surgery, hip replacement, and ankle replacement. HOME MEDICATIONS: 1. Lansoprazole. 2. Humalog. 3. Aspirin. 4. Gabapentin. 5. Sertraline. 6. Crestor. 7. Levothyroxine. 8. Lantus. 9. Carvedilol. ALLERGIES: KNOWN TO CODEINE AND PENICILLIN. SOCIAL HISTORY: No smoking, alcohol, or drugs. FAMILY HISTORY: No history of kidney disease. REVIEW OF SYSTEMS: CONSTITUTIONAL: Negative for weight loss or gain, ability to conduct usual activities. SKIN: Negative for rash, itching. EYES: Negative for double vision, pain. ENT/MOUTH: Negative for nose bleeding, neck stiffness, pain, tenderness. CARDIOVASCULAR: Negative for palpitations, dyspnea on exertion, orthopnea. RESPIRATORY: Negative for shortness of breath, wheezing, cough, hemoptysis, fever or night sweats. GASTROINTESTINAL: Negative for poor appetite, abdominal pain, heartburn, nausea, vomiting, constipation, or diarrhea. GENITOURINARY: Negative for urgency, frequency, dysuria, nocturia. MUSCULOSKELETAL: Negative for pain, swelling. NEUROLOGIC/PSYCHIATRIC: Negative for anxiety, depression. ALLERGY/IMMUNOLOGIC: Negative for skin rash, bleeding tendency. PHYSICAL EXAMINATION: GENERAL: The patient is an obese female, in no apparent distress. VITAL SIGNS: Temperature 98.2, pulse 76, respiratory rate 18, and blood pressure 158/80. HEENT: Atraumatic and normocephalic. Oral mucosa moist. NECK: Supple. CV: S1 and S2 heard. Rate and rhythm regular. RESPIRATORY: Clear. GI: Abdomen is soft. MUSCULOSKELETAL: 1+ edema. DERMATOLOGIC: No rash. NEUROLOGIC: Alert and awake. PSYCHIATRIC: Normal mood and affect. LABORATORY DATA: Hemoglobin is 9.1. Potassium 4.5. Creatinine was 2.06 two days back. ASSESSMENT AND PLAN: 1. Chronic kidney disease stage [address] Batista will resume care tomorrow. 2. Edema, controlled. 3. Hypertension. 4. Type 2 diabetes. 5. Anemia of chronic disease. Labs seems to be stable from a baseline. We will repeat labs in the morning. Dr. Batista to resume care tomorrow. Thank you for the consult. Job ID: [id number]
[2018-11-28] MEDS ORDERED: Sodium Chloride 0.9% 10 ML ONE (17:41)
[2018-11-28] MEDS ORDERED: methylPREDNISolone Sod Succ 40 MG VIAL IVP SCH (21:00)
[2018-11-28] MEDS: Atorvastatin Calcium 40 MG TAB PO SCH (21:36)
[2018-11-28] MEDS: Insulin Glargine 65 UNITS in Pre-Filled Syringe 1 EACH SC SCH (21:37)
[2018-11-28] MEDS: Senokot 8.6 MG TAB PO SCH (22:33)
[2018-11-29 02:42] LABS: Hemoglobin 8.8 g/dL (12.0-16.0); Platelet Count 210 thou/uL (130-400)
[2018-11-29 03:06] LABS: Anion Gap 12 mmol/L (10-20); BUN (Urea Nitrogen) 62 mg/dL (9.8-20.1); Calc. Creatinine Clearance 32 mL/min (70-130); Calcium 9.3 mg/dL (7.8-10.44); Carbon Dioxide 26 mmol/L (23-31); Chloride 99 mmol/L (98-107); Estimated GFR-MDRD 23; Glucose 354 mg/dL (83-110); Magnesium 2.1 mg/dL (1.6-2.6); Potassium 4.8 mmol/L (3.5-5.1); Sodium 132 mmol/L (136-145)
[2018-11-29] MEDS: methylPREDNISolone Sod Succ 40 MG VIAL IVP SCH (05:58)
[2018-11-29] MEDS: Levothyroxine Sodium 112 MCG TAB PO SCH (05:58)
[2018-11-29] MEDS: Mometasone/Formoterol 120 PUFF INHALER INH SCH ×2 (06:38→19:02)
[2018-11-29] MEDS: traMADol HCl 50 MG TAB PO SCH ×3 (07:26→17:11)
--- NOTE | 2018-11-29 08:46 | PRG ---
DATE OF SERVICE: 11/29/2018 SUBJECTIVE: This is a 73-year-old female being seen for acute kidney injury. The patient denied nausea, vomiting, or chest pain. OBJECTIVE: See above. The patient is awake and alert, in no acute distress. VITAL SIGNS: Afebrile, pulse 92, breathing 16, blood pressure 165/80. GENERAL APPEARANCE AND MENTAL STATUS: Fair. HEAD/NECK: Normocephalic. Atraumatic. EYES: EOMI. No deformity. EARS: Clear. No ulcers. NOSE: Intact. No lesions. MOUTH: Clear. No discharge. THROAT: Clear. No exudate. LUNGS: Clear. No crackles. CARDIAC: S1, S2. No rub. ABDOMEN: Benign. Bowel sounds positive. GENITALIA/RECTUM: Moss absent. BACK/EXTREMITIES: Edema 0+. NEUROLOGICAL: Alert and motor intact. SKIN: LYMPHATICS: LABORATORY DATA: Hemoglobin 8.8. Creatinine is 2.1. ASSESSMENT AND PLAN: 1. Acute kidney injury with chronic kidney disease, stage 4, stable. 2. Hypertension, stable. 3. Chronic kidney disease, stage 4, stable. 4. Acute tubular necrosis, stable. No indication for dialysis. We will follow the patient's renal function closely. Job ID: [id number]
[2018-11-29] MEDS: Amlodipine 5 MG TAB PO SCH (10:13)
--- NOTE | 2018-11-29 10:13 | PRG ---
DATE OF SERVICE: 11/29/2018 SUBJECTIVE: The patient is doing reasonably well. No acute complaints. OBJECTIVE: VITAL SIGNS: Temperature 98.8, pulse 63, respirations 20, O2 saturation 96% on room air, and blood pressure 183/79. HEENT: Unremarkable. NECK: No JVD. LUNGS: Very mild end-expiratory wheeze. CARDIAC: S1 and S2, regular. ABDOMEN: Soft. EXTREMITIES: No edema. ASSESSMENT: Chronic obstructive pulmonary disease/asthma with exacerbation. PLAN: I will go ahead and convert her over to p.o. prednisone. I would taper her prednisone over couple of weeks. I do think she is stable for transfer back to rehab. I would recommend finishing out 5 days of antibiotics, continuing the Dulera or Symbicort or whatever is on formulary over there and continue her nebs about every 4 hours. Job ID: [id number]
[2018-11-29] MEDS: Carvedilol 6.25 MG TAB PO SCH ×2 (10:15→22:08)
[2018-11-29] MEDS: Gabapentin 300 MG CAP PO SCH (10:15)
[2018-11-29] MEDS: Phenazopyridine HCl 97.5 MG TABLET PO SCH ×3 (10:15→17:11)
[2018-11-29] MEDS: guaiFENesin ER 600 MG TAB PO SCH ×2 (10:16→22:08)
[2018-11-29] MEDS: Cyclobenzaprine 10 MG TAB PO SCH (10:17)
[2018-11-29] MEDS: HumaLOG 300 UNITS/3 ML VIAL SC PRN ×2 (12:14→17:38)
--- NOTE | 2018-11-29 17:16 | PDOC.HOSPP ---
- Subjective Encounter Date: 11/28/18 Subjective: Doing better. Breathing is much improved. - Objective Vital Signs & Weight: Vital Signs (12 hours) Temp Pulse Pulse Pulse Resp BP BP 11/29/18 15:33 98.5 F 73 20 11/29/18 14:22 81 18 11/29/18 11:26 98.2 F 71 16 11/29/18 10:24 88 18 11/29/18 09:40 86 72 192/81 H 164/71 H 11/29/18 07:58 98.8 F 63 20 11/29/18 06:43 11/29/18 06:41 72 16 11/29/18 06:38 72 16 BP Pulse Ox 11/29/18 15:33 166/77 H 93 L 11/29/18 14:22 90 L 11/29/18 11:26 152/73 H 92 L 11/29/18 10:24 90 L 11/29/18 09:40 11/29/18 07:58 183/79 H 96 11/29/18 06:43 92 L 11/29/18 06:41 92 L 11/29/18 06:38 92 L Weight Weight 193 lb 12.581 oz I&O: 11/28/18 11/29/18 11/30/18 06:59 06:59 06:59 Intake Total 630 1390 Output Total 1700 1900 Balance -1070 -510 Result Diagrams: 11/29/18 02:28 11/29/18 02:28 Additional Labs: Accuchecks 11/29/18 11/28/18 06:34 17:08 POC Glucose 304 H 287 H Hospitalist ROS - Medication Medications: Active Medications Generic Name Dose Route Start Last Admin Trade Name Freq PRN Reason Stop Dose Admin Albuterol/Ipratropium 3 ml 11/27/18 15:00 11/29/18 14:22 Duoneb NEB 3 ml [id number] FILIPPO Administration Amlodipine Besylate 2.5 mg 11/28/18 09:00 11/29/18 10:13 Norvasc PO 2.5 mg DAILY FILIPPO Administration Atorvastatin Calcium 40 mg 11/28/18 21:00 11/28/18 21:36 Lipitor PO 40 mg HS FILIPPO Administration Carvedilol 6.25 mg 11/27/18 21:00 11/29/18 10:15 Coreg PO 6.25 mg BID FILIPPO Administration Gabapentin 600 mg 11/28/18 09:00 11/29/18 10:15 Neurontin PO 600 mg DAILY FILIPPO Administration Guaifenesin 600 mg 11/27/18 21:00 11/29/18 10:16 Mucinex PO 600 mg BID FILIPPO Administration Heparin Sodium (Porcine) 0 units 11/27/18 02:45 11/27/18 04:59 Heparin 1,000 Units/Ml (10 Ml) SLOW IVP 7,032 unit ASDIR FILIPPO Administration Protocol Levofloxacin 750 mg/ Device 150 mls @ 100 mls/hr 11/27/18 03:00 11/28/18 03: 30 IVPB 150 mls Q2D FILIPPO Administration Insulin Glargine 65 units/ 0.65 mls @ 0 mls/hr 11/27/18 21:00 11/28/18 21:37 Miscellaneous Medication SC 0.65 mls HS FILIPPO Administration Insulin Human Lispro 0 units 11/27/18 18:14 11/29/18 12:14 Humalog SC 11 units .AGGRESSIVE SLIDING PRN Administration AGGRESSIVE SLIDING SCALE Protocol Levothyroxine Sodium 112 mcg 11/28/18 06:00 11/29/18 05:58 Synthroid PO 112 mcg 0600 FILIPPO Administration Mometasone Furoate/Formoterol Fumar 2 puff 11/27/18 18:30 11/29/18 06:38 Dulera 100 Mcg/5 Mcg Inhaler INH 2 puff BID-RT FILIPPO Administration Phenazopyridine HCl 97.5 mg 11/27/18 13:00 11/29/18 17:11 Azo Standard PO 97.5 mg PC FILIPPO Administration Senna 2 tab 11/27/18 21:00 11/28/18 22:33 Senokot PO Not Given HS FILIPPO Sertraline HCl 50 mg 11/28/18 09:00 11/29/18 10:15 Zoloft PO 50 mg DAILY FILIPPO Administration Tramadol HCl 50 mg 11/27/18 12:00 11/29/18 17:11 Ultram PO 50 mg Q6HR FILIPPO Administration - Exam General Appearance: NAD, awake alert Neck: supple, symmetric, no JVD, no thyromegaly, no lymphadenopathy, no carotid bruit Heart: RRR, no murmur, no gallops, no rubs, normal peripheral pulses Respiratory: CTAB, no wheezes, no rales Gastrointestinal: soft, non-tender, non-distended, normal bowel sounds, no palpable masses, no hepatomegaly, no splenomegaly, no bruit Neurological: CN's grossly intact, normal sensation to touch, no weakness, no focal deficits, no new deficit Musculoskeletal: normal tone Psychiatric: normal affect, normal behavior, A&O x 3 Hosp A/P (1) Acute respiratory failure with hypoxia Code(s): J96.01 - ACUTE RESPIRATORY FAILURE WITH HYPOXIA Status: Acute (2) Asthma Code(s): J45.909 - UNSPECIFIED ASTHMA, UNCOMPLICATED Status: Acute (3) Hip fracture Code(s): S72.009A - FRACTURE OF UNSP PART OF NECK OF UNSP FEMUR, INIT Status: Acute (4) DM2 (diabetes mellitus, type 2) Status: Acute (5) HLD (hyperlipidemia) Code(s): E78.5 - HYPERLIPIDEMIA, UNSPECIFIED Status: Acute (6) S/P hip replacement Code(s): Z96.649 - PRESENCE OF UNSPECIFIED ARTIFICIAL HIP JOINT Status: Acute (7) CKD (chronic kidney disease), stage IV Code(s): N18.4 - CHRONIC KIDNEY DISEASE, STAGE 4 (SEVERE) Status: Acute - Plan VQ was negative. Consistent with Asthma. Pulm following. Continue nebs, steroids, oxygen, abx. Increase activity. Work toward getting her back to rehab. Her daughter has been talking with rehab. She is concerned that her mother's condition was not recognized timely. She has a care plan worked out with rehab.
--- NOTE | 2018-11-29 17:18 | PDOC.HOSPP ---
- Subjective Subjective: Doing well. today. She was able to get up and walk to the door and back today. Feels like she is ready to go back to rehab. Daughter is concerned that the Flexeril was causing some altered mental status. - Objective Vital Signs & Weight: Vital Signs (12 hours) Temp Pulse Pulse Pulse Resp BP BP 11/29/18 15:33 98.5 F 73 20 11/29/18 14:22 81 18 11/29/18 11:26 98.2 F 71 16 11/29/18 10:24 88 18 11/29/18 09:40 86 72 192/81 H 164/71 H 11/29/18 07:58 98.8 F 63 20 11/29/18 06:43 11/29/18 06:41 72 16 11/29/18 06:38 72 16 BP Pulse Ox 11/29/18 15:33 166/77 H 93 L 11/29/18 14:22 90 L 11/29/18 11:26 152/73 H 92 L 11/29/18 10:24 90 L 11/29/18 09:40 11/29/18 07:58 183/79 H 96 11/29/18 06:43 92 L 11/29/18 06:41 92 L 11/29/18 06:38 92 L Weight Weight 193 lb 12.581 oz I&O: 11/28/18 11/29/18 11/30/18 06:59 06:59 06:59 Intake Total 630 1390 Output Total 1700 1900 Balance -1070 -510 Result Diagrams: 11/29/18 02:28 11/29/18 02:28 Additional Labs: Accuchecks 11/29/18 11/28/18 06:34 17:08 POC Glucose 304 H 287 H Hospitalist ROS - Medication Medications: Active Medications Generic Name Dose Route Start Last Admin Trade Name Freq PRN Reason Stop Dose Admin Albuterol/Ipratropium 3 ml 11/27/18 15:00 11/29/18 14:22 Duoneb NEB 3 ml [id number] FILIPPO Administration Amlodipine Besylate 2.5 mg 11/28/18 09:00 11/29/18 10:13 Norvasc PO 2.5 mg DAILY FILIPPO Administration Atorvastatin Calcium 40 mg 11/28/18 21:00 11/28/18 21:36 Lipitor PO 40 mg HS FILIPPO Administration Carvedilol 6.25 mg 11/27/18 21:00 11/29/18 10:15 Coreg PO 6.25 mg BID FILIPPO Administration Gabapentin 600 mg 11/28/18 09:00 11/29/18 10:15 Neurontin PO 600 mg DAILY FILIPPO Administration Guaifenesin 600 mg 11/27/18 21:00 11/29/18 10:16 Mucinex PO 600 mg BID FILIPPO Administration Heparin Sodium (Porcine) 0 units 11/27/18 02:45 11/27/18 04:59 Heparin 1,000 Units/Ml (10 Ml) SLOW IVP 7,032 unit ASDIR FILIPPO Administration Protocol Levofloxacin 750 mg/ Device 150 mls @ 100 mls/hr 11/27/18 03:00 11/28/18 03: 30 IVPB 150 mls Q2D FILIPPO Administration Insulin Glargine 65 units/ 0.65 mls @ 0 mls/hr 11/27/18 21:00 11/28/18 21:37 Miscellaneous Medication SC 0.65 mls HS FILIPPO Administration Insulin Human Lispro 0 units 11/27/18 18:14 11/29/18 12:14 Humalog SC 11 units .AGGRESSIVE SLIDING PRN Administration AGGRESSIVE SLIDING SCALE Protocol Levothyroxine Sodium 112 mcg 11/28/18 06:00 11/29/18 05:58 Synthroid PO 112 mcg 0600 FILIPPO Administration Mometasone Furoate/Formoterol Fumar 2 puff 11/27/18 18:30 11/29/18 06:38 Dulera 100 Mcg/5 Mcg Inhaler INH 2 puff BID-RT FILIPPO Administration Phenazopyridine HCl 97.5 mg 11/27/18 13:00 11/29/18 17:11 Azo Standard PO 97.5 mg PC FILIPPO Administration Senna 2 tab 11/27/18 21:00 11/28/18 22:33 Senokot PO Not Given HS FILIPPO Sertraline HCl 50 mg 11/28/18 09:00 11/29/18 10:15 Zoloft PO 50 mg DAILY FILIPPO Administration Tramadol HCl 50 mg 11/27/18 12:00 11/29/18 17:11 Ultram PO 50 mg Q6HR FILIPPO Administration - Exam General Appearance: NAD, awake alert General - other findings: Obese ENT: normocephalic atraumatic, no oropharyngeal lesions, moist mucosa Heart: RRR, no murmur, no gallops, no rubs, normal peripheral pulses Respiratory: rales, wheezes (Mild) Gastrointestinal: soft, non-tender, non-distended, normal bowel sounds, no palpable masses, no hepatomegaly, no splenomegaly, no bruit Skin: normal turgor Neurological: CN's grossly intact, normal sensation to touch, no weakness, no focal deficits, no new deficit Musculoskeletal: generalized weakness Psychiatric: normal affect, normal behavior, A&O x 3 Hosp A/P (1) Acute respiratory failure with hypoxia Code(s): J96.01 - ACUTE RESPIRATORY FAILURE WITH HYPOXIA Status: Acute (2) Asthma Code(s): J45.909 - UNSPECIFIED ASTHMA, UNCOMPLICATED Status: Acute (3) Hip fracture Code(s): S72.009A - FRACTURE OF UNSP PART OF NECK OF UNSP FEMUR, INIT Status: Acute (4) DM2 (diabetes mellitus, type 2) Status: Acute (5) HLD (hyperlipidemia) Code(s): E78.5 - HYPERLIPIDEMIA, UNSPECIFIED Status: Acute (6) S/P hip replacement Code(s): Z96.649 - PRESENCE OF UNSPECIFIED ARTIFICIAL HIP JOINT Status: Acute (7) CKD (chronic kidney disease), stage IV Code(s): N18.4 - CHRONIC KIDNEY DISEASE, STAGE 4 (SEVERE) Status: Acute - Plan DC the Flexeril. appreciate pulm recs. Continue bronchodilators, steroids, abx. Continue PT. Working toward getting her back to rehab.
[2018-11-29] MEDS: Insulin Glargine 65 UNITS in Pre-Filled Syringe 1 EACH SC SCH (22:09)
[2018-11-29] MEDS: predniSONE 20 MG TAB PO SCH (22:09)
[2018-11-29] MEDS: Senokot 8.6 MG TAB PO SCH (22:09)
[2018-11-29] MEDS ORDERED: Atorvastatin Calcium 40 MG TAB PO SCH (22:15)
[2018-11-30] MEDS: traMADol HCl 50 MG TAB PO SCH ×4 (00:14→13:06)
[2018-11-30] MEDS: Levothyroxine Sodium 112 MCG TAB PO SCH (05:08)
[2018-11-30] MEDS: Mometasone/Formoterol 120 PUFF INHALER INH SCH (08:25)
[2018-11-30] MEDS ORDERED: Amlodipine 5 MG TAB PO SCH (09:00)
[2018-11-30] MEDS: Gabapentin 300 MG CAP PO SCH (09:53)
[2018-11-30] MEDS: Carvedilol 6.25 MG TAB PO SCH (09:53)
[2018-11-30] MEDS: predniSONE 20 MG TAB PO SCH (09:54)
[2018-11-30] MEDS: Phenazopyridine HCl 97.5 MG TABLET PO SCH ×2 (09:54→13:06)
[2018-11-30] MEDS: guaiFENesin ER 600 MG TAB PO SCH (09:54)
--- NOTE | 2018-11-30 09:59 | PRG ---
DATE OF SERVICE: 11/30/2018 SUBJECTIVE: She is doing well, wants to go back to rehab. OBJECTIVE: VITAL SIGNS: Temperature 97.9, pulse 64, respirations 14, O2 saturation 100% on room air, blood pressure 175/80. HEENT: Unremarkable. LUNGS: Clear. CARDIAC: S1, S2. Regular. ABDOMEN: Soft. EXTREMITIES: No edema. ASSESSMENT: Asthma/chronic obstructive pulmonary disease exacerbation, now better. PLAN: Slow steroid taper. Finish off antibiotics in a few days. Continue Symbicort twice daily. No further recommendations. Please re-call if further assistance needed. Job ID: [id number]
[2018-11-30 10:08] LABS: Anion Gap 13 mmol/L (10-20); BUN (Urea Nitrogen) 63 mg/dL (9.8-20.1); Calc. Creatinine Clearance 29 mL/min (70-130); Calcium 9.3 mg/dL (7.8-10.44); Carbon Dioxide 28 mmol/L (23-31); Chloride 101 mmol/L (98-107); Estimated GFR-MDRD 22; Glucose 236 mg/dL (83-110); Potassium 4.9 mmol/L (3.5-5.1); Sodium 137 mmol/L (136-145)
--- NOTE | 2018-11-30 12:27 | PRG ---
DATE OF SERVICE: 11/30/2018 SUBJECTIVE: A 73-year-old female is being seen for acute kidney injury. The patient denies any nausea, vomiting, or chest pain. OBJECTIVE: See above. The patient is awake and alert. VITAL SIGNS: Afebrile, pulse 65, breathing 16, blood pressure 175/83. GENERAL APPEARANCE AND MENTAL STATUS: Fair. HEAD/NECK: Normocephalic. Atraumatic. EYES: EOMI. No deformity. EARS: Clear. No ulcers. NOSE: Intact. No lesions. MOUTH: Clear. No discharge. THROAT: Clear. No exudate. LUNGS: Clear. No crackles. CARDIAC: S1, S2. No rub. ABDOMEN: Benign. Bowel sounds positive. GENITALIA/RECTUM: Moss absent. BACK/EXTREMITIES: Edema 0+. NEUROLOGICAL: Alert and motor intact. SKIN: LYMPHATICS: LABORATORY DATA: Labs reviewed. ASSESSMENT AND PLAN: 1. Stage 4 chronic kidney disease, stable. 2. Hypertension, stable. 3. Hyperkalemia, resolved. No need for [place]. Job ID: [id number]
[2018-11-30] MEDS: HumaLOG 300 UNITS/3 ML VIAL SC PRN (13:07)
[2018-11-30 13:08] LABS: Hemoglobin 9.6 g/dL (12.0-16.0)
[2018-11-30 15:50] VITALS: TEMP 98.7
[2018-11-30 16:19] VITALS: BP 177/81
--- NOTE | 2018-12-01 14:19 | DIS ---
DATE OF ADMISSION: 11/27/2018 DATE OF DISCHARGE: 11/30/2018 DISCHARGE DIAGNOSES: 1. Acute hypoxic respiratory failure. 2. Asthma/chronic obstructive pulmonary disease exacerbation. 3. History of diabetes mellitus. 4. History of hypothyroidism. 5. History of hyperlipidemia. 6. History of hypertension. 7. Osteoarthritis. 8. Chronic kidney disease stage 4. HISTORY OF PRESENT ILLNESS: This patient is a 73-year-old female, who had a comminuted displaced fracture of the right femur with a prior hip fracture with a hemiarthroplasty. The fracture was around the femoral steph and it was felt that the patient would not need any further surgical intervention. She was subsequently sent to inpatient rehab. There, the patient was having some delirium. She also developed shortness of breath and hypoxia with saturations in the 70s. She was subsequently brought back to the hospital. Her initial workup revealed negative chest x-ray, negative CT scan of the brain, and unremarkable EKG. Labs were also generally unremarkable with the exception of some concern for possible urinary tract infection on the UA. HOSPITAL COURSE: The patient was admitted to the hospital. She was given supplemental oxygen, who underwent an anticoagulation given her orthopedic issue. She was felt to be a high likelihood for a pulmonary embolus; however, given her chronic kidney disease, she was unable to get a CT angiogram, therefore she underwent a V/Q scan, which returned as low probability. In talking to the patient, I discovered that she had in fact had seen Dr. Mcfadden in the past for what she described as seasonal asthma. Dr. Mcfadden was subsequently consulted and felt the patient was likely experiencing some undertreated asthma. She was then given aggressive steroid intervention along with oxygen and nebulizer treatments. Over the following day, she improved substantially and was able to get up and move around a bit without significant shortness of breath or hypoxia. It was ultimately determined that the patient's delirium was likely related to some muscle relaxers, specifically Flexeril that she had been taking in rehab. These had been discontinued in the hospital, and the patient has had experienced none of those symptoms while in the hospital. At that point, it was felt that the patient was stable for discharge back to rehab. However, her BUN had been increasing during her hospital stay. It was felt this was likely related to the patient's steroids; however, Nephrology was consulted to ensure that there were no other concerns and they agreed with that and agreed to follow the patient in rehab. Also of note, the patient's blood sugars were running fairly high as a result of the steroids, and therefore, the plan was to monitor the patient and try to reduce steroids as rapidly as possible and continue to adjust treatment for her blood sugars in the interim. DISPOSITION: The patient is discharged back to inpatient rehab. The patient's daughter had been in contact with [facility], and it was felt like they had a reasonable plan going forward to monitor the patient's breathing and have Internal Medicine physician following the patient there. She will be on, 1. DuoNeb's. 2. Norvasc. 3. Humalog sliding scale. 4. Lantus. 5. Levaquin. 6. Azo Standard. 7. Prednisone. 8. Sertraline. 9. Levothyroxine. 10. Gabapentin. 11. Carvedilol. 12. Aspirin. 13. MiraLAX. 14. Breo Ellipta. 15. Lovenox. 16. Atorvastatin. 17. Senna. 18. Simethicone. 19. Calcium. 20. Trazodone. 21. Tramadol. 22. She will stop the Flexeril. ACTIVITY: Otherwise as tolerated. She will continue PT and OT. FOLLOWUP: She will follow up with Dr. Daley and her PCP at discharge from inpatient rehab, and she can return to the hospital at anytime should she feel the need. TIME SPENT: Total time in discharge activities was greater than 30 minutes. Job ID: [id number] MTDD
--- NOTE | 2018-12-03 13:24 | EKG ---
Test Reason : Blood Pressure : / mmHG Vent. Rate : 081 BPM Atrial Rate : 081 BPM P-R Int : 158 ms QRS Dur : 090 ms QT Int : 392 ms P-R-T Axes : 050 -14 044 degrees QTc Int : 455 ms Normal sinus rhythm Normal ECG Confirmed by ALLYSSA ROCHA, PRETTY Guerrero ([id number]), web content editor ABRAHAM LAUREANO ([id number]) on 12/03/2018 1:24:23 PM Referred By: Confirmed By:PRETTY SPIVEY MD
== END 2018-11-30 17:02 | DRG 189 ==
LOC: ERS 22:03 → 2NO 11-27 00:59
PROVIDERS: ADMIT Hospitalist; ATTEND Hospitalist
DX: J96.01 Acute respiratory failure with hypoxia (principal); N17.0 Acute kidney failure with tubular necrosis; G93.40 Encephalopathy, unspecified; N39.0 Urinary tract infection, site not specified; N18.4 Chronic kidney disease, stage 4 (severe); J45.901 Unspecified asthma with (acute) exacerbation; J44.1 Chronic obstructive pulmonary disease with (acute) exacerbation; E03.9 Hypothyroidism, unspecified; E78.5 Hyperlipidemia, unspecified; E78.00 Pure hypercholesterolemia, unspecified; M19.90 Unspecified osteoarthritis, unspecified site; I12.9 Hypertensive chronic kidney disease with stage 1 through stage 4 chronic kidney disease, or unspecified chronic kidney disease; E11.22 Type 2 diabetes mellitus with diabetic chronic kidney disease; D63.1 Anemia in chronic kidney disease; Z96.641 Presence of right artificial hip joint; E87.5 Hyperkalemia; Z88.0 Allergy status to penicillin; Z88.5 Allergy status to narcotic agent; Z79.899 Other long term (current) drug therapy; Z79.4 Long term (current) use of insulin; S72.91XD Unspecified fracture of right femur, subsequent encounter for closed fracture with routine healing; Z79.82 Long term (current) use of aspirin; Z91.81 History of falling; Z86.718 Personal history of other venous thrombosis and embolism; Z95.3 Presence of xenogenic heart valve; Z79.51 Long term (current) use of inhaled steroids; Z95.1 Presence of aortocoronary bypass graft; Z96.661 Presence of right artificial ankle joint; E66.9 Obesity, unspecified; Z68.31 Body mass index [BMI] 31.0-31.9, adult
CPT/HCPCS: 36415; 36416; 70450; 71045; 78582; 80048; 81003; 81015; 82550; 82553; 82805; 83735; 83880; 84443; 84484; 85014; 85018; 85025; 85049; 85379; 85730; 87040; 87086; 93005; 94640; A9540; A9558; J0360; J1644; J1815; J1956; J2920; J7512; J7620

== ENCOUNTER 2019-01-09 09:54 | Outpatient (CLI) | payer MEDICARE, OTHER ==
--- NOTE | 2019-01-09 10:29 | RAD ---
EXAM: Chest 2 views: HISTORY: Dyspnea COMPARISON: 02/12/2014 FINDINGS: There is a normal-sized cardiomediastinal silhouette. The patient is status post sternotomy. There is no evidence of consolidation, mass, or pleural effusion. Degenerative changes are seen in the spine. IMPRESSION: No evidence of acute cardiopulmonary disease
== END 2019-01-09 09:55 | disposition home or self-care (01) ==
LOC: RAD 09:54
PROVIDERS: ATTEND Internal Medicine Critical Care Medicine
DX: R06.00 Dyspnea, unspecified (principal)
CPT/HCPCS: 71046

== ENCOUNTER 2019-05-08 09:35 | Outpatient (CLI) | payer MEDICARE, OTHER ==
--- NOTE | 2019-05-08 12:18 | BD ---
DEXA BONE DENSITY STUDY: Date: 05/08/2019 HISTORY: Postmenopausal. FINDINGS: Lumbar Spine: BMD (g/cm2) L1 1.094 T-Score: +0.9 L2 1.149 T-Score: +1.1 L3 1.297 T-Score: +1.9 L4 1.248 T-Score: +1.7 Total 1.204 T-Score: +1.4 Left Femoral Neck: 0.749 T-Score: -0.9 Total Femur: 0.919 T-Score: -0.2 IMPRESSION: Normal bone mineral density of the lumbar spine and left femoral neck. POS: NIKKO
== END 2019-05-08 09:36 | disposition home or self-care (01) ==
LOC: BICMAMMO 09:35
PROVIDERS: ATTEND Advanced Practice Midwife
DX: M81.0 Age-related osteoporosis without current pathological fracture (principal)
CPT/HCPCS: 77080

== ENCOUNTER 2019-08-30 21:54 | Inpatient (IN) | payer MEDICARE, OTHER ==
[2019-08-30] MEDS ORDERED: Norepinephrine 8 MG/0.9% NS 250 ML ONE (22:19)
[2019-08-30 22:24] LABS: #Lymphocytes 0.5 thou/uL (1.20-3.40); #Monocytes 0.8 thou/uL (0.11-0.59); #Neutrophils 5.7 thou/uL (1.40-6.50); %Basophils 0.1 % (0.0-1.0); %Eosinophils 0.6 % (0.0-10.0); %Lymphocytes 7.2 % (21.0-51.0); %Monocytes 11.2 % (0.0-10.0); %Neutrophils 80.9 % (42.0-75.0); Hemoglobin 9.1 g/dL (12.0-16.0); Mean Corpuscular HGB CONC 32.3 g/dL (32.0-36.0); Mean Corpuscular Hemoglobin 30.5 pg (27.0-31.0); Mean Corpuscular Volume 94.5 fL (78.0-98.0); Mean Platelet Volume 7.9 fL (7.4-10.4); Platelet Count 123 thou/uL (130-400); RBC Distribution Width 13.2 % (11.5-14.5); Red Blood Cell (RBC) Count 2.99 mill/uL (4.20-5.40); White Blood Cell (WBC) Count 7.1 thou/uL (4.8-10.8)
[2019-08-30] MEDS ORDERED: Vancomycin 1 GM/200 ML BAG ONE (22:25)
[2019-08-30] MEDS ORDERED: Cefepime 2 GM VIAL ONE (22:25)
--- NOTE | 2019-08-30 22:26 | RAD ---
XR Chest 1 View Portable HISTORY: Altered mental status, shortness of breath COMPARISON: 01/17/2019 FINDINGS: Changes of median sternotomy are again seen. Heart size is enlarged. The lungs are expanded without lobar consolidation, pneumothoraces, poli pulmonary edema or pleural effusions. There are degenerative changes in the spine. There are postop changes of left rotator cuff repair.
[2019-08-30 22:46] LABS: ALT (SGPT) 23 U/L (8-55); AST (SGOT) 27 U/L (5-34); Albumin 3.1 g/dL (3.4-4.8); Alkaline Phosphatase 80 U/L (40-110); Anion Gap 14 mmol/L (10-20); BUN (Urea Nitrogen) 49 mg/dL (9.8-20.1); Bilirubin, Total 0.4 mg/dL (0.2-1.2); Calc. Creatinine Clearance 0 mL/min (70-130); Calcium 7.3 mg/dL (7.8-10.44); Carbon Dioxide 20 mmol/L (23-31); Chloride 107 mmol/L (98-107); Estimated GFR-MDRD 15; Globulin 2.2 g/dL (2.4-3.5); Glucose 191 mg/dL (83-110); Potassium 4.8 mmol/L (3.5-5.1); Protein, Total 5.3 g/dL (6.0-8.3); Sodium 136 mmol/L (136-145)
--- NOTE | 2019-08-30 23:03 | RAD ---
XR Chest 1 View Portable HISTORY: Central line placement COMPARISON: Earlier exam of 10:11 PM from same date FINDINGS: There is been interval placement of a right internal jugular central venous catheter with t ip in the projection of the SVC. No pneumothorax is seen. Remainder the exam is otherwise unchanged
[2019-08-30 23:09] LABS: CKMB 1.7 ng/mL (0-6.6)
[2019-08-30 23:45] LABS: Actual Bicarbonate (HCO3a) 19.5 mEq/L (22-28); Analyzer IN Cardio ER; Base Excess (BEa) -7.6 mEq/L (-2.0 to +3.0); CO2 Tension 46.3 mmHg (35.0-45.0); Calcium, Ionized (arterial) 1.11 mmol/L (1.12-1.30); Carboxyhemoglobin (COHb) 0.3 gm% (0.0-3.0); Hemoglobin (Hb) 10.1 g/dL (12.0-16.0); O2 Tension (PaO2), arterial 94.2 mmHg (> 70.0); Potassium - ABG Lab 4.48 mmol/L (3.70-5.30)
[2019-08-30 23:46] LABS: pH, Arterial 7.24 (7.35-7.45)
[2019-08-30 23:47] LABS: ALV-art Gradient 76.085 (0-20); Puncture Site RR
[2019-08-30 23:52] LABS: INR-International Normal Ratio 1.1; PTT 39.3 sec (22.9-36.1); Prothrombin Time 14.4 sec (12.0-14.7)
[2019-08-30] MEDS ORDERED: methylPREDNISolone Sod Succ/PF 125 MG/2 ML VIAL ONE (23:56)
[2019-08-30] MEDS ORDERED: Albuterol 200 PUFF (6.7GM INHALER) ONE (23:59)
[2019-08-31 00:33] LABS: Bacteria/HPF None Seen HPF (None Seen); Bilirubin Negative (Negative); Blood, Urine Negative (Negative); Clarity Turbid (Clear); Glucose, Urine (Dipstick) Normal (Negative); Leukocyte Negative Leu/uL (Negative); Nitrite Negative (Negative); Protein, Urine (Dipstick) 100 mg/dL (Neg-Trace); RBC/HPF None Seen HPF (0-3); Squamous Epithelial None Seen HPF (0-3); WBC/HPF 0-3 HPF (0-3)
[2019-08-31] MEDS ORDERED: Enoxaparin Sodium 100 MG/ML SYRINGE ONE (00:45)
[2019-08-31] MEDS ORDERED: Dextrose 5% in Water 1,000 ML IV PRN (01:13)
[2019-08-31] MEDS ORDERED: Dextrose 50% Abboject 50 ML SYRINGE SLOW IVP PRN (01:13)
[2019-08-31] MEDS ORDERED: Vancomycin 1 GM in Premix Bag 1 BAG IVPB SCH (01:15)
[2019-08-31] MEDS ORDERED: Ondansetron ODT 4 MG TAB SL PRN (01:45)
[2019-08-31] MEDS ORDERED: Ondansetron PF 4 MG/2 ML Vial IVP PRN (01:45)
[2019-08-31] MEDS: Sodium Chloride 0.9% 1,000 ML IV SCH ×3 (02:42→21:44)
--- NOTE | 2019-08-31 02:47 | HP ---
CHIEF COMPLAINT: Altered mental status and oxygen saturation. HISTORY OF PRESENT ILLNESS: Ms. Burger is a 74-year-old female with past medical history of diabetes mellitus type 2, hypothyroidism, hyperlipidemia, hypertension, osteoarthritis, and heart valve replacement, among others, presented to the emergency room with altered mental status and low oxygen saturation. The patient apparently went to the doctor few days ago for fever and did have a COVID test, which was negative. The patient continued to have fever and hypoxic. EMS was contacted due to altered mental status and she was having oxygen saturation in the 70s. The patient was placed on oxygen with improvement of her oxygen saturation. Currently, her oxygen saturation in the 90s. The patient did become more awake and alert after receiving oxygen. In the emergency room, the patient was hypotensive. The patient was given IV fluids 2 L by EMS. The patient continued to be hypotensive. The ED physician placed a central venous catheter and start the patient on Levophed. The patient has a history of ? asthma and does appear that she was admitted back in November with similar presentation that they thought it was a possible PE, but a V/Q scan was negative. The patient denies history of congestive heart failure. PAST MEDICAL HISTORY: 1. Diabetes mellitus, type 2. 2. Hypothyroidism. 3. Hyperlipidemia. 4. Hypertension. 5. Osteoarthritis. 6. Asthma. PAST SURGICAL HISTORY: 1. Heart valve replaced - bypass of the vein. 2. Back surgery. 3. Right hip replacement. 4. Right ankle surgery. SOCIAL HISTORY: Denies alcohol abuse or drug abuse. No smoking history. FAMILY HISTORY: Reviewed and noncontributory. ALLERGIES: ALLERGIC TO CODEINE AND PENICILLIN. HOME MEDICATIONS: Please see home medication reconciliation form for updated medications. REVIEW OF SYSTEMS: Review of 14 systems negative except what is mentioned in history of present illness. PHYSICAL EXAMINATION: GENERAL: The patient is currently more awake and alert, in moderate respiratory distress. VITAL SIGNS: Blood pressure was 86/55 and currently is 108/73 on Levophed, pulse 71, respiratory rate is 20, oxygen saturation 96% on 3 L/minute nasal cannula, and temperature 100.2. HEAD AND NECK: Normocephalic and atraumatic. NECK: Supple. CHEST: Few bibasilar crackles. HEART: S1 and S2. Regular. ABDOMEN: Soft. Bowel sounds present. NEUROLOGIC: Awake, moving extremities. PSYCH: Unable to assess. EXTREMITIES: No clubbing, no cyanosis. LABORATORY DATA: CT of the chest showed basilar subsegmental atelectasis/infiltrates. WBC 7.1, hemoglobin 9.1, and platelets 123. Sodium 136, potassium 4.8, BUN 49, and creatinine 2.9. Troponin 0.04. ABG; pH of 7.24, pCO2 of 46, and pO2 of 94. Urinalysis is unremarkable. INR is 1.1. A CT of the chest as mentioned above. ASSESSMENT: 1. Acute hypoxic respiratory failure. 2. Septic shock. 3. Pneumonia ? 4. Acute on chronic renal failure. 5. Acute encephalopathy, metabolic. 6. Diabetes mellitus, type 2. 7. History of hypertension. PLAN: 1. Admit to ICU. 2. Septic workup including blood cultures done in the ED. 3. IV antibiotics. 4. Oxygen to keep saturation more 92%. 5. Vasopressor. Continue with Levophed, titrate to MAP of 65 or above. 6. The patient was given one dose of Lovenox in the ED, reassess in a.m. May need a ventilation-perfusion lung scan. The patient had similar presentation in the past and at that time it was suspected for pulmonary embolism, but a V/Q scan was negative. 7. Monitor kidney function and urine output. 8. Consult Pulmonary in a.m. for evaluation and further recommendations. 9. Consider Nephrology consultation in a.m. 10. Reconcile home medications. 11. DVT prophylaxis as appropriate. 12. GI prophylaxis. 13. Reconcile home medications. 14. Expected length of stay, 2 midnights or more. Job ID: [id number]
[2019-08-31] MEDS: HumaLOG 300 UNITS/3 ML VIAL SC PRN ×4 (06:43→21:29)
[2019-08-31 06:47] LABS: Band 14 % (5-11); Hemoglobin 9.6 g/dL (12.0-16.0); Lymphocytes 8 % (21-51); MDiff Complete? YES; Mean Corpuscular HGB CONC 30.8 g/dL (32.0-36.0); Mean Corpuscular Hemoglobin 29.4 pg (27.0-31.0); Mean Corpuscular Volume 95.3 fL (78.0-98.0); Mean Platelet Volume 7.8 fL (7.4-10.4); Monocytes 3 % (0-10); Neutrophil 75 % (42-75); Platelet Count 118 thou/uL (130-400); Platelet Morphology Comment Appears Decreased; RBC Distribution Width 13.4 % (11.5-14.5); Red Blood Cell (RBC) Count 3.25 mill/uL (4.20-5.40); White Blood Cell (WBC) Count 7.2 thou/uL (4.8-10.8)
[2019-08-31 06:52] LABS: ALT (SGPT) 24 U/L (8-55); AST (SGOT) 27 U/L (5-34); Albumin 3.2 g/dL (3.4-4.8); Alkaline Phosphatase 84 U/L (40-110); Anion Gap 12 mmol/L (10-20); BUN (Urea Nitrogen) 55 mg/dL (9.8-20.1); Bilirubin, Total 0.3 mg/dL (0.2-1.2); Calc. Creatinine Clearance 21 mL/min (70-130); Calcium 8.1 mg/dL (7.8-10.44); Carbon Dioxide 19 mmol/L (23-31); Chloride 108 mmol/L (98-107); Estimated GFR-MDRD 14; Globulin 3.1 g/dL (2.4-3.5); Glucose 277 mg/dL (83-110); Potassium 5.1 mmol/L (3.5-5.1); Protein, Total 6.3 g/dL (6.0-8.3); Sodium 134 mmol/L (136-145)
[2019-08-31 06:55] LABS: Troponin I 0.052 ng/mL (< 0.028)
--- NOTE | 2019-08-31 08:05 | CT ---
PRELIMINARY REPORT/[facility]/EMERGENCY AFTER HOURS PROCEDURE EXAM: CT Chest Without Intravenous Contrast. CLINICAL HISTORY: This is a 74-year-old female who presents to the emergency department for chief com plaint of altered mental status and hypoxia TECHNIQUE: Axial computed tomography images of the chest without intravenous contrast. COMPARISON: None provided. FINDINGS: LUNGS: No pulmonary mass. Bibasilar subsegmental airspace densities. PLEURAL SPACES: Small bilateral pleural effusions. No pneumothorax. HEART AND MEDIASTINUM: Mild cardiomegaly. No significant pericardial effusion. The coronary arteries are calcified. Right jugular venous central catheter in place with the tip in the mid SVC. AORTA: Normal caliber. Atherosclerosis. LYMPH NODES: No lymphadenopathy. CHEST WALL AND UPPER ABDOMEN: Cholecystectomy clips in the gallbladder fossa. The other upper abdomi nal organs are normal. The chest wall is unremarkable. BONES: No acute osseous abnormality. Multilevel degenerative disc disease. Tendon anchors in the lef t humeral head. IMPRESSION: Small bilateral pleural effusions. Bibasilar subsegmental airspace disease which may rep resent atelectasis or pneumonia. Mild cardiomegaly. Coronary artery disease. ELECTRONICALLY SIGNED BY: Giuseppe Quinonez MD Aug 31, 2019 12:38:15 AM CDT FINAL REPORT EMERGENT AFTER HOURS CT OF THE CHEST WITHOUT CONTRAST: FINDINGS/IMPRESSION: I agree with the findings and impression given in the preliminary report per [facility] physici an. 1. Tiny bilateral pleural effusions with adjacent atelectasis. 2. There are subtle areas of peripheral airspace opacity in the peripheral aspect of the mid right l jessica. These may represent early infiltrates. POS: YEMI
--- NOTE | 2019-08-31 08:07 | CT ---
PRELIMINARY REPORT/[facility]/EMERGENCY AFTER HOURS PROCEDURE EXAM: CT Head Without Intravenous Contrast. CLINICAL HISTORY: Altered mental status. TECHNIQUE: Axial computed tomography images of the head/brain without intravenous contrast. COMPARISON: None provided. FINDINGS: BRAIN: No acute intraparenchymal hemorrhage. No mass lesion. No CT evidence for acute territorial inf arct. No midline shift or extra-axial collection. Mild prominence of the sulci and ventricles. Mild subcortical and periventricular white matter hypodensities. Arteriosclerosis. VENTRICLES: No hydrocephalus. ORBITS: The orbits are unremarkable. SINUSES AND MASTOIDS: Mucosal thickening of the bilateral maxillary sinuses, sphenoid sinuses, and et hmoid air cells. Mastoid air cells are clear. SOFT TISSUES: No significant facial or scalp soft tissue swelling evident. No radiopaque foreign body is seen. BONES: No acute skull fracture. IMPRESSION: No acute large vessel infarct, acute intracranial hemorrhage, or intracranial mass lesion . Mild generalized cerebral atrophy. Mild subcortical and periventricular white matter change likely related to chronic ischemic small vessel disease. Inflammatory changes in the ethmoid air cells, sph enoid sinuses, and bilateral maxillary sinuses. ELECTRONICALLY SIGNED BY: Giuseppe Quinonez MD Aug 31, 2019 12:35:35 AM CDT FINAL REPORT EMERGENT AFTER HOURS CT OF THE BRAIN WITHOUT CONTRAST: FINDINGS/IMPRESSION: I agree with the findings and impression given in the preliminary report per [facility] physici an. No evidence of acute intracranial abnormality. POS: YEMI
[2019-08-31] MEDS: Famotidine/PF 20 mg/2ml Vial SLOW IVP SCH (08:25)
[2019-08-31] MEDS: Heparin 5,000 UNITS/ML VIAL SC SCH ×3 (08:25→19:57)
[2019-08-31] MEDS ORDERED: Mometasone 200 MCG/Formoterol 5 MCG 120 PUFF INHALER INH SCH (09:00)
[2019-08-31] MEDS ORDERED: Prevnar 13-Val Conj/PF 0.5 ML SYRINGE IM ONE (09:00)
[2019-08-31] MEDS: predniSONE 20 MG TAB PO SCH (09:08)
[2019-08-31] MEDS ORDERED: predniSONE 20 MG TAB PO SCH (09:15)
--- NOTE | 2019-08-31 10:25 | CON ---
DATE OF CONSULTATION: HISTORY OF PRESENT ILLNESS: A 74-year-old female, who was brought to the ER last night, encephalopathic, short of breath, hypoxic. She had a previous coronavirus tested negative, one that was repeated again today. This morning, she is no longer encephalopathic. She is awake, alert, and responsive. Denies any shortness of breath, coughing, or wheezing. Had saturations at 97%, now on 3 L. She was seen by Dr. Mcfadden several months ago with a diagnosis of COPD, asthma. PAST MEDICAL HISTORY: Otherwise pertinent for diabetes, hypothyroidism, hyperlipidemia, high cholesterol, hypertension, arthritis. PAST SURGICAL HISTORY: Back surgery, hip replacement, bypass surgery done. Mitral valve, ankle surgery. Previous information reveals that no alcohol, no tobacco abuse. HOME MEDICATIONS: Include 1. 50 of trazodone. 2. Tramadol 50. 3. Prednisone 20 twice a day. 4. Simethicone. 5. Zoloft 50. 6. Synthroid 112. 7. Nebulizer. 8. Insulin. 9. Gabapentin 800. 10. Breo. 11. Lovenox. 12. Coreg. 13. Aspirin. ALLERGIES: PENICILLIN. SHE IS NOW ON MAXIPIME AND VANCOMYCIN. PHYSICAL EXAMINATION: GENERAL: Awake, alert, responsive. VITAL SIGNS: This morning saturations are 97% on 2 L, pulse 80, respiratory 16, blood pressure . CHEST: Decreased breath sounds, no wheezing. CARDIAC: Normal S1, S2. No gallops or masses. DIAGNOSTIC STUDIES: Chest x-ray shows no acute infiltrates. CT shows a questionable small effusion. Otherwise, lab shows creatinine of 3, BUN 55, glucose 277. White count 7000, H and H are 9 and 31, platelet count is 118. PO2 is 94, pCO2 of 46, on 3 L. ASSESSMENT: 1. Metabolic acidosis. 2. Hypoxemia, chronic obstructive pulmonary disease, bronchial asthma. 3. Probably diastolic dysfunction. 4. Renal failure, hypertension, thrombocytopenia. PLAN: Awaiting coronavirus results. She is no longer encephalopathic. She could very well be transferred out of the ICU. I scheduled neb treatments and Dulera. Consultation note 70 minutes, 50% direct patient care. Job ID: [id number]
[2019-08-31] MEDS: Gabapentin 300 MG CAP PO SCH ×2 (12:48→19:57)
[2019-08-31] MEDS: Albuterol 200 PUFF (6.7GM INHALER) INH SCH ×2 (13:00→17:23)
--- NOTE | 2019-08-31 13:22 | CON ---
DATE OF CONSULTATION: 08/31/2019 CONSULTING PHYSICIAN: Shiela Zimmerman MD REASON FOR CONSULTATION: Acute kidney injury. REASON FOR ADMISSION: Altered mentation. HISTORY OF PRESENT ILLNESS: This is a 74-year-old female with history of diabetes, hypothyroidism, and hyperlipidemia, came to the hospital with altered mentation and has been evaluated. She was also found to have acute kidney injury. Nephrology is consulted. PAST MEDICAL HISTORY: Positive for diabetes, hypothyroidism, hyperlipidemia, and hypertension. PAST SURGICAL HISTORY: Heart valve surgery, right hip replacement, right ankle surgery, and back surgery. HOME MEDICATIONS: Reviewed. ALLERGIES: 1. CODEINE. 2. PENICILLIN. SOCIAL HISTORY: No smoking, alcohol, or illicit drugs. FAMILY HISTORY: No history of kidney disease. REVIEW OF SYSTEMS: Could not be obtained. PHYSICAL EXAMINATION: GENERAL: This is an obese female, on COVID isolation. VITAL SIGNS: Temperature 97.7, pulse 61, respiratory rate 18, blood pressure 129/64. Musculoskeletal : No tenderness, No edema HEENT: Atraumatic normocephalic Neck: Supple Cardiovascular: S1S2 heard, Rate and rhythm regular Respiratory: Clear to auscultation Gastrointestinal: Abdomen is soft Dermatologic : No skin rash Neurologic: Alert and awake and oriented X3 No focal neurologic deficits. Moving all the extremities. Psychiatric: Mood and affect normal LABORATORY DATA: Potassium is 5.1, BUN is 55, creatinine is 3.1. ASSESSMENT AND PLAN: 1. Acute kidney injury, related to sepsis. Avoid nephrotoxins and continue supportive care. 2. Mild hyperkalemia. 3. Sepsis 4. Acidosis. 5. Anemia of chronic disease. 6. History of hypertension. 7. Hypoalbuminemia with moderate protein-calorie malnutrition. Continue supportive care including antibiotics, and we will continue to follow. Thank you for the consult. Job ID: [id number] MTDD
[2019-08-31] MEDS: Clindamycin/D5W 600 MG in Premix Bag 1 BAG IVPB SCH ×2 (14:11→21:35)
[2019-08-31] MEDS: cefTRIAXone\\ROCEPHIN 1 GM in Sodium Chloride 0.9% 100 ML IVPB SCH (14:12)
[2019-08-31] MEDS ORDERED: Gabapentin 400 MG CAP PO SCH (15:00)
[2019-08-31] MEDS: Acetaminophen 325 MG TAB PO PRN ×2 (17:12→21:33)
[2019-08-31] MEDS: Mometasone 200 MCG/Formoterol 5 MCG 120 PUFF INHALER INH SCH (17:24)
[2019-08-31 17:29] LABS: SARS-CoV-2 MS2 Positive; SARS-CoV-2 N Gene Negative; SARS-CoV-2 S Gene Negative; SARS-CoV-2 orf1ab Negative
[2019-08-31] MEDS ORDERED: traMADol HCl 50 MG TAB PO SCH ×2 (20:30→21:30)
[2019-08-31] MEDS ORDERED: Insulin Glargine 35 UNITS in Pre-Filled Syringe 1 EACH SC SCH (21:15)
[2019-08-31] MEDS ORDERED: Albuterol Sulfate 1.25 MG/3 ML NEB NEB SCH (22:00)
[2019-08-31] MEDS ORDERED: Cefepime 1 GM in Sodium Chloride 0.9% 100 ML IVPB SCH (22:00)
[2019-08-31 23:37] LABS: Vancomycin, Random 8.8 ug/mL (See Comment)
[2019-09-01] MEDS: Albuterol 200 PUFF (6.7GM INHALER) INH SCH (01:46)
[2019-09-01] MEDS: Clindamycin/D5W 600 MG in Premix Bag 1 BAG IVPB SCH ×3 (05:21→22:00)
[2019-09-01] MEDS: HumaLOG 300 UNITS/3 ML VIAL SC PRN ×3 (06:09→20:35)
[2019-09-01] MEDS: Mometasone 200 MCG/Formoterol 5 MCG 120 PUFF INHALER INH SCH ×2 (06:49→18:35)
[2019-09-01] MEDS: Sodium Chloride 0.9% 1,000 ML IV SCH (07:25)
[2019-09-01] MEDS ORDERED: Insulin Glargine 35 UNITS in Pre-Filled Syringe 1 EACH SC SCH (09:00)
[2019-09-01] MEDS: Famotidine/PF 20 mg/2ml Vial SLOW IVP SCH (09:39)
[2019-09-01] MEDS: traMADol HCl 50 MG TAB PO SCH ×2 (09:40→20:15)
[2019-09-01] MEDS: Gabapentin 300 MG CAP PO SCH ×3 (09:41→20:14)
[2019-09-01] MEDS: Heparin 5,000 UNITS/ML VIAL SC SCH ×3 (09:42→20:14)
[2019-09-01] MEDS: predniSONE 20 MG TAB PO SCH (09:42)
--- NOTE | 2019-09-01 10:21 | PRG ---
DATE OF SERVICE: 09/01/2019 SUBJECTIVE: This morning, she is better, she is out of the ICU. OBJECTIVE: VITAL SIGNS: Temperature 97, pulse respirations 18, saturations are 93%, blood pressure 170/96. CHEST: Decreased breath sounds. No wheezing. CARDIAC: Normal S1, S2. No gallops. ABDOMEN: No masses. IMPRESSION: Streptococcus species, awaiting final identification. PLAN: urine. Continue present antibiotics. Continue breathing treatments. May consider getting input from Infectious Disease. Job ID: [id number]
[2019-09-01 12:04] LABS: Anion Gap 16 mmol/L (10-20); BUN (Urea Nitrogen) 68 mg/dL (9.8-20.1); Calc. Creatinine Clearance 24 mL/min (70-130); Calcium 8.8 mg/dL (7.8-10.44); Carbon Dioxide 15 mmol/L (23-31); Chloride 107 mmol/L (98-107); Estimated GFR-MDRD 16; Glucose 360 mg/dL (83-110); Potassium 4.8 mmol/L (3.5-5.1); Sodium 133 mmol/L (136-145)
--- NOTE | 2019-09-01 12:06 | PRG ---
DATE OF SERVICE: 09/01/2019 SUBJECTIVE: Patient was seen and examined at bedside and overnight events noted. Patient denies any shortness of breath or chest pain or palpitation. No history of nausea or vomiting or diarrhea or fever or chills or cramps. OBJECTIVE: GENERAL: This is an obese female, in no apparent distress. VITAL SIGNS: Temperature 97.9. Heart rate 85. Respiratory rate . Blood pressure 154/75. HEENT: Atraumatic, normocephalic. Oral mucosa is moist NECK: Supple. CARDIOVASCULAR: S1, S2 heard. Rate and rhythm regular. RESPIRATORY: Clear to auscultation. GASTROINTESTINAL: Abdomen is soft. MUSCULOSKELETAL: No tenderness. No edema. DERMATOLOGIC: No skin rash. NEUROLOGIC: Alert and awake and oriented X3. No focal neurologic deficits. Moving all the extremities. PSYCHIATRIC: Mood and affect normal. LABORATORY DATA: Pending today. ASSESSMENT AND PLAN: 1. Acute kidney injury on chronic kidney disease, stage 3. We will recheck labs today. 2. Clinically seems to be better and making urine and she remains nonoliguric. 3. Nonoliguric kidney failure. 4. Mild hyperkalemia. 5. Acidosis. 6. Anemia of chronic disease. 7. History of hypertension. 8. Hypoalbuminemia. 9. Obesity. Plan to repeat labs today and monitor. Continue supportive care including antibiotics. Urine output is improving. We will follow. Job ID: [id number]
[2019-09-01] MEDS ORDERED: Albuterol Sulfate 1.25 MG/3 ML NEB NEB PRN (12:16)
[2019-09-01] MEDS ORDERED: Furosemide 40 MG/4 ML VIAL SLOW IVP SCH (13:00)
[2019-09-01] MEDS ORDERED: methylPREDNISolone Sod Succ/PF 125 MG/2 ML VIAL IVP SCH (13:00)
[2019-09-01] MEDS: cefTRIAXone\\ROCEPHIN 1 GM in Sodium Chloride 0.9% 100 ML IVPB SCH (13:02)
--- NOTE | 2019-09-01 14:40 | PDOC.HOSPP ---
- Objective Vital Signs & Weight: Vital Signs (12 hours) Temp Pulse Resp BP Pulse Ox 09/01/19 11:57 92 L 09/01/19 11:21 97.9 F 85 22 H 154/75 H 91 L 09/01/19 09:30 93 L 09/01/19 07:13 97.9 F 76 18 171/96 H 93 L 09/01/19 06:52 76 20 96 09/01/19 06:49 76 20 96 09/01/19 04:40 97.6 F 69 18 129/73 99 Weight Weight 195 lb 8.8 oz Most Recent Monitor Data Heart Rate from ECG 70 NIBP 135/73 NIBP BP-Mean 93 Respiration from ECG 22 SpO2 94 I&O: 08/31/19 09/01/19 09/02/19 06:59 06:59 06:59 Intake Total 363 2975 Output Total 125 1210 Balance 238 1765 Result Diagrams: 08/31/19 06:26 09/01/19 11:23 Additional Labs: Accuchecks 09/01/19 09/01/19 08/31/19 11:27 04:42 21:32 POC Glucose 342 H 323 H 376 H 08/31/19 08/31/19 08/31/19 20:09 17:12 12:59 POC Glucose 413 H 355 H 324 H 08/31/19 06:22 POC Glucose 262 H Hospitalist ROS - Medication Medications: Active Medications Generic Name Dose Route Start Last Admin Trade Name Freq PRN Reason Stop Dose Admin Acetaminophen 650 mg 08/31/19 01:13 08/31/19 21:33 Tylenol PO 650 mg Q4H PRN Administration Headache/Fever/Mild Pain (1-3) Albuterol/Ipratropium 3 ml 09/01/19 07:00 09/01/19 11:57 Duoneb NEB 3 ml [id number] FILIPPO Administration Famotidine 20 mg 08/31/19 09:00 09/01/19 09:39 Pepcid SLOW IVP 20 mg QAM FILIPPO Administration Furosemide 40 mg 09/01/19 13:00 09/01/19 13:17 Lasix SLOW IVP 09/01/19 15:00 40 mg NOW FILIPPO Administration Gabapentin 300 mg 08/31/19 15:00 09/01/19 09:41 Neurontin PO 300 mg TID FILIPPO Administration Heparin Sodium (Porcine) 5,000 units 08/31/19 09:00 09/01/19 09:42 Heparin SC Not Given TID FILIPPO Ceftriaxone Sodium 1 gm/ 100 mls @ 200 mls/hr 08/31/19 13:30 09/01/19 13:02 Sodium Chloride IVPB 100 mls Q24HR FILIPPO Administration Clindamycin Phosphate/Dextrose 50 mls @ 100 mls/hr 08/31/19 14:00 09/01/19 05 :21 600 mg/ Device IVPB 50 mls Q8HR FILIPPO Administration Insulin Glargine 35 units/ 0.35 mls @ 0 mls/hr 09/01/19 09:00 09/01/19 09:37 Miscellaneous Medication SC 0.35 mls BID FILIPPO Administration Insulin Human Lispro 0 units 08/31/19 01:13 09/01/19 13:17 Humalog SC 5 unit .MILD SLIDING SCALE PRN Administration Mild Correctional Scale Methylprednisolone Sodium Succinate 60 mg 09/01/19 13:00 09/01/19 13:18 Solu-Medrol IVP 09/01/19 15:00 60 mg NOW FILIPPO Administration Mometasone Furoate/Formoterol Fumar 2 puff 08/31/19 18:30 09/01/19 06:49 Dulera 200 Mcg/5 Mcg Inhaler INH 2 puff BID-RT FILIPPO Administration Prednisone 20 mg 09/01/19 08:00 09/01/19 09:42 Prednisone PO 20 mg QAM-WM FILIPPO Administration Sodium Chloride 10 ml 08/31/19 09:00 09/01/19 09:42 Flush - Normal Saline IVF Not Given Q12HR [facility] Tramadol HCl 50 mg 09/01/19 09:00 09/01/19 09:40 Ultram PO 50 mg Q12HR FILIPPO Administration - Exam General Appearance: NAD, awake alert Eye: PERRL, anicteric sclera ENT: normocephalic atraumatic, no oropharyngeal lesions Neck: no JVD Heart: RRR, no murmur, no gallops, no rubs Respiratory: no rales, no ronchi, wheezes Respiratory - other findings: significant Gastrointestinal: soft, non-tender, non-distended Extremities: no cyanosis, no clubbing, no edema Skin: normal turgor, no lesions, no rashes
[2019-09-01] MEDS ORDERED: Mometasone 100 MCG/Formoterol 5 MCG 120 PUFF INHALER INH SCH (14:57)
--- NOTE | 2019-09-01 14:59 | PDOC.HOSPP ---
- Subjective Encounter Date: 09/01/19 Encounter Time: 12:00 Subjective: The patient reports that she was doing better at first, but this morning felt nothing was making her SOB better. She states she took a shower and felt SOB the whole time - Objective Vital Signs & Weight: Vital Signs (12 hours) Temp Pulse Resp BP Pulse Ox 09/01/19 11:57 92 L 09/01/19 11:21 97.9 F 85 22 H 154/75 H 91 L 09/01/19 09:30 93 L 09/01/19 07:13 97.9 F 76 18 171/96 H 93 L 09/01/19 06:52 76 20 96 09/01/19 06:49 76 20 96 09/01/19 04:40 97.6 F 69 18 129/73 99 Weight Weight 195 lb 8.8 oz Most Recent Monitor Data Heart Rate from ECG 70 NIBP 135/73 NIBP BP-Mean 93 Respiration from ECG 22 SpO2 94 I&O: 08/31/19 09/01/19 09/02/19 06:59 06:59 06:59 Intake Total 363 2975 Output Total 125 1210 Balance 238 1765 Result Diagrams: 08/31/19 06:26 09/01/19 11:23 Additional Labs: Accuchecks 09/01/19 09/01/19 08/31/19 11:27 04:42 21:32 POC Glucose 342 H 323 H 376 H 08/31/19 08/31/19 08/31/19 20:09 17:12 12:59 POC Glucose 413 H 355 H 324 H 08/31/19 06:22 POC Glucose 262 H Hospitalist ROS - Review of Systems Constitutional: denies: fever, chills - Medication Medications: Active Medications Generic Name Dose Route Start Last Admin Trade Name Freq PRN Reason Stop Dose Admin Acetaminophen 650 mg 08/31/19 01:13 08/31/19 21:33 Tylenol PO 650 mg Q4H PRN Administration Headache/Fever/Mild Pain (1-3) Albuterol/Ipratropium 3 ml 09/01/19 07:00 09/01/19 11:57 Duoneb NEB 3 ml [id number] FILIPPO Administration Famotidine 20 mg 08/31/19 09:00 09/01/19 09:39 Pepcid SLOW IVP 20 mg QAM FILIPPO Administration Furosemide 40 mg 09/01/19 13:00 09/01/19 13:17 Lasix SLOW IVP 09/01/19 15:00 40 mg NOW FILIPPO Administration Gabapentin 300 mg 08/31/19 15:00 09/01/19 09:41 Neurontin PO 300 mg TID FILIPPO Administration Heparin Sodium (Porcine) 5,000 units 08/31/19 09:00 09/01/19 09:42 Heparin SC Not Given TID FILIPPO Ceftriaxone Sodium 1 gm/ 100 mls @ 200 mls/hr 08/31/19 13:30 09/01/19 13:02 Sodium Chloride IVPB 100 mls Q24HR FILIPPO Administration Clindamycin Phosphate/Dextrose 50 mls @ 100 mls/hr 08/31/19 14:00 09/01/19 14 :41 600 mg/ Device IVPB 50 mls Q8HR FILIPPO Administration Insulin Glargine 35 units/ 0.35 mls @ 0 mls/hr 09/01/19 09:00 09/01/19 09:37 Miscellaneous Medication SC 0.35 mls BID FILIPPO Administration Insulin Human Lispro 0 units 08/31/19 01:13 09/01/19 13:17 Humalog SC 5 unit .MILD SLIDING SCALE PRN Administration Mild Correctional Scale Methylprednisolone Sodium Succinate 60 mg 09/01/19 13:00 09/01/19 13:18 Solu-Medrol IVP 09/01/19 15:00 60 mg NOW FILIPPO Administration Mometasone Furoate/Formoterol Fumar 2 puff 08/31/19 18:30 09/01/19 06:49 Dulera 200 Mcg/5 Mcg Inhaler INH 2 puff BID-RT FILIPPO Administration Prednisone 20 mg 09/01/19 08:00 09/01/19 09:42 Prednisone PO 20 mg QAM-WM FILIPPO Administration Sodium Chloride 10 ml 08/31/19 09:00 09/01/19 09:42 Flush - Normal Saline IVF Not Given Q12HR FILIPPO Tramadol HCl 50 mg 09/01/19 09:00 09/01/19 09:40 Ultram PO 50 mg Q12HR FILIPPO Administration - Exam General Appearance: NAD, awake alert General - other findings: obese Eye: PERRL, anicteric sclera ENT: normocephalic atraumatic, no oropharyngeal lesions Neck: supple, symmetric, no JVD, no thyromegaly Heart: RRR, no murmur, no gallops, no rubs Respiratory: CTAB Respiratory - other findings: diffuse expiratory wheezing ,bilateral crackles Gastrointestinal: soft, non-tender, non-distended, normal bowel sounds Extremities: no cyanosis, no clubbing, 1+ LE edema Skin: normal turgor, no lesions, no rashes Neurological: cranial nerve grossly intact, normal sensation to touch, no focal deficits, no new deficit Musculoskeletal: normal tone, normal strength, no muscle wasting Psychiatric: normal affect, normal behavior, A&O x 3, oriented to person Hosp A/P - Plan This is a 74 year old female patient who presented with diabetes, hypothyroidism that presentedwith AMS and hypoxia. She reports having two negative COVID tests. Acute hypoxic respiratory failure - likely from asthma exacerbation vs pulmonary edema - chest X ray appears worst today with possibly pulmonary edema. Discontinue IV fluids - gave lasix 40 mg IV - repeat ABG, last blood gas showed pH 7.2 - switch to IV steroids 60 mg IV - continue duoneb q4 hours, albuterol q2 hours prn - continue dulera b id - also ordered for albuterol inhaler prn since patient states nebulizer doesn't work - continue ceftriaxone and clindamycin - troponin up to 0.5, will repeat. Check ECHo ALYX - creatinine improved down to 2.8 with fluids. Hyponatremia - sodium 133. Will stop fluids due to concern for pulm edema Type II diabetes - blood sugars 300-400 - increase lantus to 38 units qam, 40 units qpm Anemia - had normal iron panel, B12/folate earlier this year Code status: full code
[2019-09-01] MEDS ORDERED: Albuterol 200 PUFF (6.7GM INHALER) INH PRN (15:11)
[2019-09-01 16:16] LABS: Actual Bicarbonate (HCO3a) 17.1 mEq/L (22-28); Base Excess (BEa) -9.3 mEq/L (-2.0 to +3.0); CO2 Tension 39.1 mmHg (35.0-45.0); Calcium, Ionized (arterial) 1.19 mmol/L (1.12-1.30); Carboxyhemoglobin (COHb) 0.5 gm% (0.0-3.0); Hemoglobin (Hb) 10.2 g/dL (12.0-16.0); O2 Tension (PaO2), arterial 67.5 mmHg (> 70.0); Potassium - ABG Lab 4.66 mmol/L (3.70-5.30); pH, Arterial 7.26 (7.35-7.45)
[2019-09-01 16:17] LABS: ALV-art Gradient 111.785 (0-20); Puncture Site LRA
--- NOTE | 2019-09-01 16:25 | RAD ---
EXAM: CHEST ONE VIEW: 09/01/19 HISTORY: Hypoxia. COMPARISON: 08/21/19. FINDINGS: Cardiomegaly with bilateral vascular congestion and increased linear and interstitial markings bilate rally worse when compared to most recent prior study of 08/30/19. Right jugular venous catheter in dexter ce. Postop midline sternotomy. IMPRESSION: Cardiomegaly with some worsening vascular congestion and possible minimal or early interstitial edema . Continued short term follow-up. POS: RRE
[2019-09-01] MEDS ORDERED: Sodium Bicarb 50 MEQ/50 ML Abboject 8.4% SYRINGE ONE (18:19)
[2019-09-01] MEDS ORDERED: Sodium Bicarb 50 MEQ/50 ML Abboject 8.4% SYRINGE IVP SCH (18:45)
[2019-09-01] MEDS: Sodium Bicarbonate 150 MEQ in Dextrose 5% in Water 1,000 ML IV SCH (19:33)
[2019-09-01 20:23] LABS: Actual Bicarbonate (HCO3a) 22.6 mEq/L (22-28); Base Excess (BEa) -2.4 mEq/L (-2.0 to +3.0); CO2 Tension 39.7 mmHg (35.0-45.0); Calcium, Ionized (arterial) 1.13 mmol/L (1.12-1.30); Carboxyhemoglobin (COHb) 0.3 gm% (0.0-3.0); O2 Tension (PaO2), arterial 71.2 mmHg (> 70.0); Potassium - ABG Lab 4.47 mmol/L (3.70-5.30); pH, Arterial 7.37 (7.35-7.45)
[2019-09-01] MEDS: Insulin Glargine 40 UNITS in Pre-Filled Syringe 1 EACH SC SCH (20:24)
[2019-09-01 20:28] LABS: ALV-art Gradient 128.725 (0-20); Puncture Site RRA
[2019-09-02 04:56] LABS: Hemoglobin 9.3 g/dL (12.0-16.0); Mean Corpuscular HGB CONC 32.4 g/dL (32.0-36.0); Mean Corpuscular Hemoglobin 29.9 pg (27.0-31.0); Mean Corpuscular Volume 92.4 fL (78.0-98.0); Mean Platelet Volume 8.1 fL (7.4-10.4); Platelet Count 168 thou/uL (130-400); RBC Distribution Width 13.3 % (11.5-14.5); Red Blood Cell (RBC) Count 3.12 mill/uL (4.20-5.40); White Blood Cell (WBC) Count 7.3 thou/uL (4.8-10.8)
[2019-09-02 05:16] LABS: Anion Gap 14 mmol/L (10-20); BUN (Urea Nitrogen) 67 mg/dL (9.8-20.1); Calc. Creatinine Clearance 26 mL/min (70-130); Calcium 8.5 mg/dL (7.8-10.44); Carbon Dioxide 27 mmol/L (23-31); Chloride 102 mmol/L (98-107); Estimated GFR-MDRD 18; Glucose 388 mg/dL (83-110); Potassium 4.3 mmol/L (3.5-5.1); Sodium 139 mmol/L (136-145)
[2019-09-02] MEDS: Clindamycin/D5W 600 MG in Premix Bag 1 BAG IVPB SCH ×2 (05:51→15:47)
[2019-09-02] MEDS: HumaLOG 300 UNITS/3 ML VIAL SC PRN ×2 (05:51→13:16)
[2019-09-02] MEDS: Mometasone 200 MCG/Formoterol 5 MCG 120 PUFF INHALER INH SCH ×2 (07:26→19:08)
[2019-09-02] MEDS: Sodium Bicarbonate 150 MEQ in Dextrose 5% in Water 1,000 ML IV SCH ×3 (07:33→20:09)
[2019-09-02] MEDS: predniSONE 20 MG TAB PO SCH (08:41)
[2019-09-02] MEDS: traMADol HCl 50 MG TAB PO SCH ×2 (08:41→20:00)
[2019-09-02] MEDS: Heparin 5,000 UNITS/ML VIAL SC SCH ×3 (08:42→20:01)
[2019-09-02] MEDS: Famotidine/PF 20 mg/2ml Vial SLOW IVP SCH (08:42)
[2019-09-02] MEDS: Gabapentin 300 MG CAP PO SCH ×3 (08:42→19:55)
[2019-09-02] MEDS: Insulin Glargine 38 UNITS in Pre-Filled Syringe 1 EACH SC SCH (08:43)
[2019-09-02] MEDS ORDERED: Non-Formulary Item 1 EACH (Fluticasone/Vilanterol [Breo Ellipta] 1 INH) IH SCH (09:00)
[2019-09-02] MEDS: cefTRIAXone\\ROCEPHIN 1 GM in Sodium Chloride 0.9% 100 ML IVPB SCH (12:34)
--- NOTE | 2019-09-02 12:43 | PRG ---
DATE OF SERVICE: 09/02/2019 SUBJECTIVE: Ms. Burger is better. She is transferred back to the ICU for tachypnea. This is all metabolic acidosis induced. She was given 3 amps of bicarb, started on bicarb drip. She says she feels great today. LABORATORY DATA: White count 7.3, hemoglobin 9.3, and platelets 168,000. Her bicarb is up to 27, BUN 67, creatinine 2.58 down from 2.81 yesterday. Her pH after the bicarb was 7.37, it was 7.26 before the bicarb. Pneumococcus sensitivities are back. It is a pansensitive pneumococcus. IMPRESSION: 1. Pneumococcal pneumonia with bacteremia and clinical sepsis as well as bnivf-et-afblxoo kidney disease. 2. Metabolic acidosis secondary to her presentation with sepsis and qymxh-dv-pcdyuez kidney disease. PLAN: She is stable to move out of the Critical Care Unit back up to a medical bed in my opinion. Job ID: [id number]
[2019-09-02] MEDS ORDERED: HumaLOG 300 UNITS/3 ML VIAL SC PRN (15:25)
[2019-09-02] MEDS ORDERED: Dextrose 50% Abboject 50 ML SYRINGE SLOW IVP PRN (15:25)
[2019-09-02] MEDS ORDERED: Dextrose 5% in Water 1,000 ML IV PRN (15:25)
--- NOTE | 2019-09-02 15:33 | PDOC.HOSPP ---
- Subjective Encounter Date: 09/02/19 Encounter Time: 11:45 Subjective: [facility], feels ok, no cough, BG hihg sating 98% 2.. 3 li O2. - Objective Vital Signs & Weight: Vital Signs (12 hours) Temp Pulse Resp BP Pulse Ox 09/02/19 13:24 98 09/02/19 12:46 82 16 98 09/02/19 11:37 98.2 F 80 20 166/92 H 98 09/02/19 08:00 98.0 F 97 09/02/19 07:23 62 15 100 09/02/19 06:56 61 14 99 09/02/19 04:00 97.2 F L Weight Weight 195 lb 8.8 oz Most Recent Monitor Data Heart Rate from ECG 76 NIBP 173/92 NIBP BP-Mean 119 Respiration from ECG 21 SpO2 97 I&O: 09/01/19 09/02/19 09/03/19 06:59 06:59 06:59 Intake Total 2975 2445 1017 Output Total 1210 3040 475 Balance 1765 -595 542 Result Diagrams: 09/02/19 04:30 09/02/19 04:30 Additional Labs: Accuchecks 09/02/19 09/01/19 13:20 16:37 POC Glucose 217 H 305 H Hospitalist ROS - Medication Medications: Active Medications Generic Name Dose Route Start Last Admin Trade Name Freq PRN Reason Stop Dose Admin Acetaminophen 650 mg 08/31/19 01:13 08/31/19 21:33 Tylenol PO 650 mg Q4H PRN Administration Headache/Fever/Mild Pain (1-3) Albuterol/Ipratropium 3 ml 09/01/19 07:00 09/02/19 12:46 Duoneb NEB 3 ml [id number] FILIPPO Administration Famotidine 20 mg 08/31/19 09:00 09/02/19 08:42 Pepcid SLOW IVP 20 mg QAM FILIPPO Administration Gabapentin 300 mg 08/31/19 15:00 09/02/19 08:42 Neurontin PO 300 mg TID FILIPPO Administration Heparin Sodium (Porcine) 5,000 units 08/31/19 09:00 09/02/19 08:42 Heparin SC 5,000 units TID FILIPPO Administration Insulin Glargine 40 units/ 0.4 mls @ 0 mls/hr 09/01/19 21:00 09/01/19 20:24 Miscellaneous Medication SC 0.4 mls HS FILIPPO Administration Insulin Glargine 38 units/ 0.38 mls @ 0 mls/hr 09/02/19 09:00 09/02/19 08:43 Miscellaneous Medication SC 0.38 mls QAM FILIPPO Administration Sodium Bicarbonate 150 meq/ 1,150 mls @ 100 mls/hr 09/01/19 18:45 09/02/19 08 :44 Dextrose/Water IV 1,150 mls .[id number] FILIPPO Administration Insulin Human Lispro 0 units 08/31/19 01:13 09/02/19 13:16 Humalog SC 3 unit .MILD SLIDING SCALE PRN Administration Mild Correctional Scale Mometasone Furoate/Formoterol Fumar 2 puff 08/31/19 18:30 09/02/19 07:26 Dulera 200 Mcg/5 Mcg Inhaler INH Not Given BID-RT FILIPPO Prednisone 40 mg 09/02/19 08:00 09/02/19 08:41 Prednisone PO 40 mg QAM-WM FILIPPO Administration Sodium Chloride 10 ml 08/31/19 09:00 09/02/19 08:44 Flush - Normal Saline IVF 10 ml Q12HR FILIPPO Administration Tramadol HCl 50 mg 09/01/19 09:00 09/02/19 08:41 Ultram PO 50 mg Q12HR FILIPPO Administration - Exam General Appearance: NAD, awake alert Eye: PERRL ENT: normocephalic atraumatic Neck: supple Heart: RRR, normal peripheral pulses Respiratory: CTAB, normal chest expansion Gastrointestinal: soft, non-distended, normal bowel sounds Neurological: no focal deficits Psychiatric: normal affect, normal behavior, A&O x 3 Hosp A/P - Plan Note edited to reflect today's care of plan. 74 year old female patient who presented with diabetes, hypothyroidism that presentedwith AMS and hypoxia. She reports having two negative COVID tests. Acute hypoxic respiratory failure - likely from asthma exacerbation vs pulmonary edema IMPROVED - Sats 98% w..3 Li O2 - chest X ray appears worst today with possibly pulmonary edema. - gave lasix 40 mg IV - switch to IV steroids 60 mg IV --------------->prednisone - continue duoneb q4 hours, albuterol q2 hours prn - continue dulera b id - also ordered for albuterol inhaler prn since patient states nebulizer doesn't work - continue ceftriaxone and clindamycin - troponin up to 0.5, will repeat. Check ECHo -------------->pending ALYX - creatinine improved down to 2.8 with fluids. Hyponatremia - resolved Type II diabetes - blood sugars 300-400 - increase lantus to 38 units qam, 40 units qpm -added SSI Anemia - had normal iron panel, B12/folate earlier this year Code status: full code COVID NEG PT c/s
--- NOTE | 2019-09-02 15:48 | PRG ---
DATE OF SERVICE: 09/02/2019 SUBJECTIVE: Patient was seen and examined at bedside and overnight events noted. Patient denies any shortness of breath or chest pain or palpitation. No history of nausea or vomiting or diarrhea or fever or chills or cramps. OBJECTIVE: General: This is an obese female, in no apparent distress. Vital Signs: Temperature 98. Heart rate 80. Respiratory rate . Blood pressure 166/92. HEENT: Atraumatic, normocephalic. Oral mucosa is moist. Neck: Supple. Cardiovascular: S1, S2 heard. Rate and rhythm regular. Respiratory: Clear to auscultation. Gastrointestinal: Abdomen is soft. Musculoskeletal: No tenderness. No edema. Dermatologic: No skin rash. Neurologic: Alert and awake and oriented x3. No focal neurologic deficits. Moving all the extremities. Psychiatric: Mood and affect normal. LABORATORY DATA: Potassium 4.3, BUN is , creatinine is 3.5. ASSESSMENT AND PLAN: 1. Acute kidney injury on chronic kidney disease, stage 3, stable. 2. Mild hyperkalemia. 3. Acidosis. 4. Hypertension. 5. Obesity. Labs seems to be getting better. Continue to avoid nephrotoxins and continue supportive care. Job ID: [id number]
--- NOTE | 2019-09-02 16:26 | CON ---
DATE OF CONSULTATION: 09/02/2019 REASON FOR CONSULTATION: Bacteremia. HISTORY OF PRESENT ILLNESS: A 74-year-old who has a history of COPD, type 2 diabetes, hypertension, CKD stage 4, prior right lower extremity fractures, and hemiarthroplasty as well as aortic valve replacement with a tissue valve, who was brought in with hypoxemia and altered mental status. She had seen her doctor a few days before. She had a COVID test, which was negative, and the reason she went to see him is because of fever. She persisted with fever on arrival. Her O2 saturations were 70 on room air and then went up to 97 with nasal cannula O2. She became more aware of things and she was given IV fluids at normal saline 2 L. Initial findings included BP 83/49 and 111/58, O2 saturations were 94 on 3 L, and respirations 16. She was alert and oriented by the time she got treated and findings remarkable for inspiratory crackles in the left lower lobe and right lower lobe. Other than that, exam was fairly unremarkable. Other findings included white cell count 7.1, hemoglobin 9.1, and platelets 123 with 80% neutrophils. Creatinine was 2.95, which is close to the patient's baseline. Culture that was not detected again and urinalysis with 0-3 wbc's. Microbiology, now 2/2 cultures with Streptococcus gallolyticus with a bob-susceptibility profile. Currently, Ms. Burger is in bed. She is lying flat in bed, having obvious wheezing on exam even without listening to her lungs as she has audible wheezing. She denies any headaches. She is awake and oriented. No visual symptoms. No sore throat, odynophagia, or dysphagia. No vomiting. She does not feel dyspneic at rest, maybe mildly so. No chest pain. No abdominal pain or diarrhea. No genitourinary symptoms. She has pain in the right ankle, which has been there on and off for many years, but now seems to have exacerbated more than usual. She has chronic low back pain, which is unchanged from before. MEDICAL HISTORY: 1. COPD. 2. Type 2 diabetes. 3. Hypothyroidism. 4. Hyperlipidemia. 5. Hypertension. 6. Osteoarthritis. 7. Right lower extremity fracture. 8. Hemiarthroplasty of right hip. 9. Aortic valve replacement with a tissue [place] [address] Jasso. SOCIAL HISTORY: Retired. Lives in [place] with . Never smoker. No alcoholic beverage use. ALLERGIES: CODEINE AND PENICILLIN WITH FACE AND NECK SWELLING. CURRENT MEDICATIONS: She is receivin. Proventil. 2. DuoNeb. 3. Ceftriaxone. 4. Clindamycin. 5. Neurontin. 6. Mometasone. 7. Tramadol. PHYSICAL EXAMINATION: VITAL SIGNS: Temperature is normal, BP 160/92, pulse 82, respirations 16, and O2 saturation 98 on 3 L nasal cannula. SKIN: Not remarkable. Peripheral IV access. She has an indwelling Moss catheter. No lymphadenopathy. HEENT: Ocular movements are conjugate. Some facial flushing. Conjunctivae normal. Oral cavity with still quite a few teeth in place with some decay and gum disease. NECK: Supple with some jugular vein distention, but the patient is lying flat in bed. LUNGS: Faint wheezing expiratorily on right and left side. HEART: S1 and S2. Regular rate. No S3 or S4. ABDOMEN: Soft, not distended or tender. No ascites. No bladder distention. EXTREMITIES: No joint inflammatory activity. Moves extremities equally. Pulses 1+ in dorsalis pedis. Plantar responses are flexor. LABORATORY DATA: The latest white cell count is 7.3, hemoglobin 9.3, and platelets 168. Chemistry: Creatinine down to 2.58 and calcium 8.5. Troponin 0.027. IMAGING AMEYA DIES: We have a chest x-ray, which showed cardiomegaly and some vascular congestion, some early interstitial edema. There is an echocardiogram from 2017 with EF of 60%, LVH, and bioprosthetic valve in aortic position. An echocardiogram has been ordered and is pending interpretation, looks like has been taken already. ASSESSMENT: 1. Type 2 diabetes. 2. Hypertension. 3. Chronic obstructive pulmonary disease. 4. Aortic valve replacement with a tissue valve. 5. Streptococcus gallolyticus bacteremia. 6. Right ankle pain. DISCUSSION: Differential diagnosis includes Streptococcus gallolyticus aortic valve endocarditis versus an alternate site, such as for example the joint although it is more likely that the r ankle pain could be a consequence of the valvular infection with hematogenous spread. Streptococcus gallolyticus has a high correlation with endocarditis and that should be the #1 concern. I would recommend evaluating the echo. She may need a transesophageal echocardiogram to properly evaluate the aortic valve. Streptococcus gallolyticus tends to be a bit more hard to treat, and in this case, the AJIT for Penicillin is equal to 0.12 mcg/mL, which will allow us to treat with Rocephin for 6 weeks if the valve is shown to be involved. We will have to continue monitoring the right ankle. She may need attention to that ankle in imaging studies depending on clinical progress. Job ID: [id number] MTDD
[2019-09-02] MEDS ORDERED: Carvedilol 3.125 MG TAB PO SCH (19:45)
[2019-09-02] MEDS ORDERED: Amlodipine 5 MG TAB PO SCH (19:45)
[2019-09-02] MEDS: Acetaminophen 325 MG TAB PO PRN (19:53)
[2019-09-02] MEDS: Insulin Glargine 40 UNITS in Pre-Filled Syringe 1 EACH SC SCH (21:11)
[2019-09-03] MEDS: hydrALAZINE 20 MG/ML VIAL SLOW IVP PRN ×2 (04:39→09:38)
[2019-09-03] MEDS: Sodium Bicarbonate 150 MEQ in Dextrose 5% in Water 1,000 ML IV SCH ×2 (06:27→07:20)
[2019-09-03] MEDS ORDERED: Heparin 25,000 units/D5W 500 ML IVPB SCH (06:30)
[2019-09-03] MEDS ORDERED: Heparin 10,000 UNITS/ 10 ML VIAL SLOW IVP SCH (06:30)
[2019-09-03] MEDS: Mometasone 200 MCG/Formoterol 5 MCG 120 PUFF INHALER INH SCH ×2 (06:43→18:53)
[2019-09-03] MEDS: Diltiazem 125 MG in Sodium Chloride 0.9% 100 ML IVPB SCH ×2 (07:09→14:20)
[2019-09-03 07:24] LABS: Platelet Count 213 thou/uL (130-400)
[2019-09-03] MEDS: Famotidine/PF 20 mg/2ml Vial SLOW IVP SCH (07:32)
[2019-09-03 08:17] LABS: Actual Bicarbonate (HCO3a) 33.7 mEq/L (22-28); Base Excess (BEa) 9.9 mEq/L (-2.0 to +3.0); CO2 Tension 42.2 mmHg (35.0-45.0); Hemoglobin (Hb) 11.3 g/dL (12.0-16.0); pH, Arterial 7.52 (7.35-7.45)
[2019-09-03 08:18] LABS: Analyzer IN Cardio OR; Calcium, Ionized (arterial) 1.07 mmol/L (1.12-1.30); Carboxyhemoglobin (COHb) 0.6 gm% (0.0-3.0); Potassium - ABG Lab 3.32 mmol/L (3.70-5.30); Puncture Site LRA
[2019-09-03] MEDS ORDERED: Lorazepam 2 MG/ML VIAL ONE (08:18)
--- NOTE | 2019-09-03 08:28 | RAD ---
Exam: Chest one view HISTORY:Wheezing. Comparison: 09/01/2019 FINDINGS: Lines and tubes: Right-sided internal jugular venous catheter Cardiac silhouette:Stable cardiomegaly and sternotomy wires. Aorta: Unremarkable Pulmonary vessels: Normal Costophrenic angles: Clear LUNGS: Worsening opacification lung parenchyma. Currently there appear to be both interstitial and mo re focal alveolar opacities. Pneumothorax: None Osseous abnormalities: None IMPRESSION: Worsening opacification of the lung parenchyma.
[2019-09-03] MEDS ORDERED: Ondansetron PF 4 MG/2 ML Vial IVP PRN (08:30)
[2019-09-03 08:38] LABS: ALT (SGPT) 29 U/L (8-55); AST (SGOT) 36 U/L (5-34); Albumin 3.4 g/dL (3.4-4.8); Alkaline Phosphatase 94 U/L (40-110); Anion Gap 13 mmol/L (10-20); BUN (Urea Nitrogen) 46 mg/dL (9.8-20.1); Bilirubin, Total 0.7 mg/dL (0.2-1.2); Calc. Creatinine Clearance 39 mL/min (70-130); Calcium 8.8 mg/dL (7.8-10.44); Carbon Dioxide 35 mmol/L (23-31); Chloride 94 mmol/L (98-107); Estimated GFR-MDRD 29; Globulin 3.5 g/dL (2.4-3.5); Glucose 150 mg/dL (83-110); Potassium 3.4 mmol/L (3.5-5.1); Protein, Total 6.9 g/dL (6.0-8.3); Sodium 139 mmol/L (136-145)
[2019-09-03] MEDS ORDERED: Levothyroxine Sodium 112 MCG TAB PO SCH (08:45)
[2019-09-03] MEDS ORDERED: Levothyroxine Sodium 25 MCG TAB PO SCH (08:45)
[2019-09-03] MEDS ORDERED: Carvedilol 3.125 MG TAB PO SCH ×3 (09:00→09:30)
[2019-09-03 09:29] LABS: #Eosinphils 0.1 thou/uL (0.0-0.7); #Lymphocytes 0.9 thou/uL (1.20-3.40); #Monocytes 0.8 thou/uL (0.11-0.59); #Neutrophils 9.2 thou/uL (1.40-6.50); %Basophils 0.3 % (0.0-1.0); %Eosinophils 0.5 % (0.0-10.0); %Monocytes 7.3 % (0.0-10.0); %Neutrophils 84.1 % (42.0-75.0); Mean Corpuscular HGB CONC 32.6 g/dL (32.0-36.0); Mean Corpuscular Hemoglobin 30.2 pg (27.0-31.0); Mean Corpuscular Volume 92.9 fL (78.0-98.0); Mean Platelet Volume 7.8 fL (7.4-10.4); Platelet Count 217 thou/uL (130-400); RBC Distribution Width 13.3 % (11.5-14.5); Red Blood Cell (RBC) Count 3.64 mill/uL (4.20-5.40); White Blood Cell (WBC) Count 10.9 thou/uL (4.8-10.8)
[2019-09-03] MEDS: Insulin Glargine 38 UNITS in Pre-Filled Syringe 1 EACH SC SCH (09:34)
[2019-09-03] MEDS: Amlodipine 5 MG TAB PO SCH (10:05)
[2019-09-03] MEDS: predniSONE 20 MG TAB PO SCH (10:05)
[2019-09-03] MEDS: Carvedilol 6.25 MG TAB PO SCH ×2 (10:06→20:22)
[2019-09-03] MEDS: Polyethylene Glycol 3350 17 GM Packet PO SCH (10:08)
[2019-09-03] MEDS ORDERED: Propofol 1,000 MG/100 ML VIAL IV ONE (10:28)
[2019-09-03] MEDS ORDERED: Midazolam HCl 2 mg/2 ml Vial ONE (10:29)
[2019-09-03] MEDS ORDERED: Magnesium Sulfate 3 GM in Sodium Chloride 0.9% 100 ML IVPB SCH (10:30)
[2019-09-03] MEDS ORDERED: Rocuronium Bromide 10 MG/ML (10ML VIAL) ONE (10:41)
[2019-09-03] MEDS: Sodium Chloride 0.9% 1,000 ML IV SCH ×3 (10:45→23:38)
[2019-09-03 10:54] LABS: Actual Bicarbonate (HCO3a) 31.6 mEq/L (22-28); Base Excess (BEa) 7.5 mEq/L (-2.0 to +3.0); CO2 Tension 42.8 mmHg (35.0-45.0); Calcium, Ionized (arterial) 1.06 mmol/L (1.12-1.30); Hemoglobin (Hb) 10.4 g/dL (12.0-16.0); O2 Tension (PaO2), arterial 69.2 mmHg (> 70.0); Potassium - ABG Lab 4.06 mmol/L (3.70-5.30); pH, Arterial 7.49 (7.35-7.45)
[2019-09-03] MEDS ORDERED: Ventilator Sedation Protocol 1 EACH FS SCH (10:58)
[2019-09-03 11:00] LABS: Puncture Site LRA
[2019-09-03] MEDS ORDERED: Enoxaparin Sodium 80 MG/0.8 ML SYRINGE SC SCH (11:00)
[2019-09-03] MEDS ORDERED: Morphine 2 MG/ML SYRINGE SLOW IVP PRN (11:10)
[2019-09-03] MEDS ORDERED: Fentanyl BOLUS 250 ML IVPB PRN (11:10)
[2019-09-03] MEDS ORDERED: Propofol BOLUS 1,000 MG/100 ML VIAL IV PRN (11:10)
[2019-09-03] MEDS ORDERED: Lorazepam 2 MG/ML VIAL SLOW IVP PRN (11:10)
[2019-09-03] MEDS ORDERED: fentaNYL Citrate/PF 2,000 MCG in Sodium Chloride 0.9% 60 ML IV SCH (11:10)
[2019-09-03] MEDS ORDERED: DISCONTINUE PREVIOUS NARCOTIC PAIN MEDICATIONS AND BENZODIAZEPINES FS SCH (11:10)
[2019-09-03] MEDS: methylPREDNISolone Sod Succ 40 MG VIAL IVP SCH ×3 (11:28→23:37)
[2019-09-03] MEDS ORDERED: Potassium Chloride 20 MEQ TAB PO SCH (11:45)
--- NOTE | 2019-09-03 11:59 | CON ---
DATE OF CONSULTATION: REASON FOR CONSULTATION: Endocarditis. HISTORY OF PRESENT ILLNESS: Ms. Burger is a 74-year-old woman, who is a patient of Dr. Diogo Angelo. She recently began having low-grade fever. She was seen and evaluated by primary care provider. She was ruled out for COVID. She continued to have fevers and presented to the emergency room. She had blood cultures positive for Strep gallolyticus. She was seen and evaluated by Dr. Rao Dubon, who feels this is likely consistent with endocarditis. Echo was done on 09/02/2019. Echo findings have not been reviewed. She also developed atrial fibrillation with RVR. She also appears to be quite tachypneic. PAST MEDICAL HISTORY: Status post AVR in 2010, COPD, diabetes mellitus, hypothyroidism, hyperlipidemia, hypertension, osteoarthritis. ALLERGIES: CODEINE AND PENICILLIN. HOME MEDICATIONS: Include, 1. Proventil. 2. DuoNebs. 3. Ceftriaxone. 4. Clindamycin. 5. Neurontin. 6. Tramadol. REVIEW OF SYSTEMS: Unobtainable. She is currently on noninvasive ventilation. PHYSICAL EXAMINATION: GENERAL: Patient is a pleasant woman who is in no acute distress. The patient appears their stated age. VITAL SIGNS: Blood pressure 124/102, pulse 137, respirations 30 to 34. NEUROLOGIC: The patient is alert and oriented x3 with no focal neurologic deficits. HEENT: Sclerae without icterus. Mouth has moist mucous membranes with normal pallor. NECK: No JVD. Carotid upstroke brisk. No bruits bilaterally. LUNGS: Clear to auscultation with unlabored respirations. BACK: No scoliosis or kyphosis. CARDIAC: Irregularly irregular, tachycardic. ABDOMEN: Soft, nontender, nondistended. No peritoneal signs present. No hepatosplenomegaly. No abnormal striae. EXTREMITIES: 2+ femoral and 2+ dorsalis pedis pulses. No cyanosis, clubbing, or edema. SKIN: No gross abnormalities. PERTINENT LABORATORY DATA: Hemoglobin 11, hematocrit 33.8. Creatinine is 1.7 with a GFR of 29. IMPRESSION: 1. Sepsis. 2. Status post aortic valve replacement. 3. Atrial fibrillation with rapid ventricular response. 4. Respiratory distress. RECOMMENDATIONS: At this point, I discussed the case at length with Dr. Keron Benz. It was decided to proceed with intubation given that she is tachypneic with sepsis in addition to high heart rate. I will review her echo. If there is evidence of endocarditis, I would not proceed with SHILPA. If no pericarditis present, I would then recommend a SHILPA in a.m. I discussed the procedure in full detail with Ms. Burger. Risks include, but not limited to the following: Damage to teeth, mouth, back of throat; damage to esophagus requiring emergency surgery as well as reaction to medication. All questions were answered. Given the above, the patient agreed to proceed with the above procedure. Plan on proceeding with SHILPA in a.m. We will discontinue IV heparin and cover with Lovenox x1 dose. Creatinine is elevated with a GFR of 29. Once she is intubated, we will reassess heart rate. May consider IV Cardizem versus IV digoxin for better rate control. I would anticipate with better oxygenation and less tachypnea, heart rate will improve. I did spend 40 minutes of critical care time at Ms. Burger's bedside. I discussed the case with Dr. Keron Benz as well as her . Job ID: [id number]
[2019-09-03] MEDS ORDERED: methylPREDNISolone Sod Succ 40 MG VIAL IVP SCH (12:00)
[2019-09-03] MEDS ORDERED: methylPREDNISolone Sod Succ/PF 125 MG/2 ML VIAL IVP SCH (12:00)
--- NOTE | 2019-09-03 13:01 | PDOC.HOSPP ---
- Subjective Encounter Date: 09/03/19 Encounter Time: 08:50 Subjective: SAMMIE ROSEN CALLED THIS am, with tachy, high BP and sob, tachypnea and desats. Moved to unit, severe COPD exacerbation and resp..alkalosis and severe hypoxia , intubated in the unit. cardizem bolus given on the floor, cardiology consult placed. - Objective Vital Signs & Weight: Vital Signs (12 hours) Temp Pulse Pulse Pulse Pulse Pulse Resp 09/03/19 11:06 116 H 09/03/19 10:24 140 H 26 H 09/03/19 10:15 137 H 28 H 09/03/19 10:06 09/03/19 10:05 153 H 09/03/19 09:38 140 H 09/03/19 08:56 140 H 27 H 09/03/19 08:21 09/03/19 07:42 175 H 173 H 160 H 154 H 09/03/19 06:50 98.3 F 168 H 32 H 09/03/19 06:30 97.9 F 168 H 20 09/03/19 04:39 95 Resp Resp Resp Resp BP BP BP 09/03/19 11:06 81/64 L 09/03/19 10:24 09/03/19 10:15 09/03/19 10:06 124/102 H 09/03/19 10:05 09/03/19 09:38 09/03/19 08:56 09/03/19 08:21 09/03/19 07:42 36 H 36 H 34 H 28 H 160/100 H 138/90 09/03/19 06:50 09/03/19 06:30 09/03/19 04:39 178/79 H BP Pulse Ox Pulse Ox Pulse Ox Pulse Ox Pulse Ox 09/03/19 11:06 09/03/19 10:24 98 09/03/19 10:15 98 09/03/19 10:06 09/03/19 10:05 09/03/19 09:38 09/03/19 08:56 100 09/03/19 08:21 93 L 09/03/19 07:42 85 L 89 L 92 L 100 09/03/19 06:50 160/104 H 91 L 09/03/19 06:30 132/87 91 L 09/03/19 04:39 Weight Weight 195 lb 8.8 oz Most Recent Monitor Data Heart Rate from ECG 76 NIBP 173/92 NIBP BP-Mean 119 Respiration from ECG 21 SpO2 97 I&O: 09/02/19 09/03/19 09/04/19 06:59 06:59 06:59 Intake Total 2445 2306 Output Total 3040 1375 Balance -595 931 Result Diagrams: 09/03/19 07:41 09/03/19 07:41 Additional Labs: Accuchecks 09/03/19 09/03/19 09/02/19 07:48 06:24 20:59 POC Glucose 151 H 121 H 219 H 09/02/19 09/02/19 09/01/19 16:25 13:20 20:23 POC Glucose 191 H 217 H 353 H Hospitalist ROS - Medication Medications: Active Medications Generic Name Dose Route Start Last Admin Trade Name Freq PRN Reason Stop Dose Admin Acetaminophen 650 mg 08/31/19 01:13 09/02/19 19:53 Tylenol PO 650 mg Q4H PRN Administration Headache/Fever/Mild Pain (1-3) Amlodipine Besylate 5 mg 09/03/19 09:00 09/03/19 10:05 Norvasc PO 5 mg DAILY FILIPPO Administration Carvedilol 12.5 mg 09/03/19 09:00 09/03/19 10:06 Coreg PO 6.25 mg BID FILIPPO Administration Enoxaparin Sodium 80 mg 09/03/19 11:00 09/03/19 11:24 Lovenox SC 09/03/19 14:00 80 mg NOW FILIPPO Administration Famotidine 20 mg 08/31/19 09:00 09/03/19 07:32 Pepcid SLOW IVP 20 mg QAM FILIPPO Administration Hydralazine HCl 10 mg 09/02/19 19:34 09/03/19 09:38 Apresoline SLOW IVP 10 mg Q4H PRN Administration SBP GREATER THAN 150 Insulin Glargine 40 units/ 0.4 mls @ 0 mls/hr 09/01/19 21:00 09/02/19 21:11 Miscellaneous Medication SC 0.4 mls HS FILIPPO Administration Insulin Glargine 38 units/ 0.38 mls @ 0 mls/hr 09/02/19 09:00 09/03/19 09:34 Miscellaneous Medication SC 0.38 mls QAM FILIPPO Administration Diltiazem HCl 125 mg/ Sodium 125 mls @ 5 mls/hr 09/03/19 06:30 09/03/19 07:09 Chloride IVPB 125 mls INF FILIPPO Administration Protocol 5 MG/HR Sodium Chloride 1,000 mls @ 100 mls/hr 09/03/19 12:45 09/03/19 12:44 Normal Saline 0.9% IV Not Given .Q10H FILIPPO Insulin Human Lispro 0 units 09/02/19 15:25 09/02/19 21:13 Humalog SC 4 unit .MODERATE SLIDING SC PRN Administration Moderate Correctional Scale Methylprednisolone Sodium Succinate 20 mg 09/03/19 12:00 09/03/19 11:28 Solu-Medrol IVP 20 mg Q6HR FILIPPO Administration Mometasone Furoate/Formoterol Fumar 2 puff 08/31/19 18:30 09/03/19 06:43 Dulera 200 Mcg/5 Mcg Inhaler INH Not Given BID-RT FILIPPO Ondansetron HCl 4 mg 09/03/19 08:30 09/03/19 08:18 Zofran IVP 4 mg Q6H PRN Administration Nausea/Vomiting Polyethylene Glycol 17 gm 09/03/19 09:00 09/03/19 10:08 Miralax PO Not Given DAILY FILIPPO Potassium Chloride 20 meq 09/03/19 11:45 09/03/19 12:43 K-Dur PO 09/03/19 13:45 20 meq NOW FILIPPO Administration Sertraline HCl 50 mg 09/03/19 09:00 09/03/19 11:26 Zoloft PO 50 mg DAILY FILIPPO Administration Sodium Chloride 10 ml 08/31/19 09:00 09/03/19 07:32 Flush - Normal Saline IVF 10 ml Q12HR FILIPPO Administration Sodium Chloride 10 ml 08/31/19 01:30 09/03/19 07:23 Flush - Normal Saline IVF 10 ml PRN PRN Administration Saline Flush - Exam General Appearance: ill appearing General - other findings: later intubated after moved to the unit for hypoxia and resp failure Eye: PERRL Neck: supple Heart: irregular Respiratory: rales, rhonchi Gastrointestinal: normal bowel sounds, distended Extremities: 1+ LE edema Neurological: no focal deficits Psychiatric: A&O x 3 Hosp A/P - Plan Note edited to reflect today's care of plan. 74 year old female patient who presented with diabetes, hypothyroidism that presentedwith AMS and hypoxia. She reports having two negative COVID tests. Acute hypoxic respiratory failure - requiring intubation - desat, tachycadia, resp..alkalosis; tachypnea -- code green -- to the unit--- intubated on . - on propofol - switch to IV steroids 60 mg IV --------------->20 IV - continue duoneb q4 hours, albuterol q2 hours prn - continue dulera bid - continue ceftriaxone - troponin up to 0.5, will repeat. Check ECHo -------------->done on 09/01 - Strep gallolyytics bacteremia Strep gallolyytics sens to CTX Prob Aortic valve Infective endocarditis -- given the fever etc.. -- [echo report pending] -reviewed ID and cardiology note -cw CTX for 6 weeks. -as bl sheryl done on - will repeat for follow up -plan for SHILPA in am. --needs central/picc line for 6 wks abx-- will address-on wednesday R. ankle swelling - start w.. Xray and sed/crp to make sure no occult process going on. Tachycardia --improved w.. addressing hypoxia and being sedated. -not on any drip -cw coreg -dc norvasc given R. ankle swelling ALYX/CKD3 - creatinine improved down to 2.8 with fluids------>1.7. Hyponatremia - resolved Type II diabetes - blood sugars 300-400 - increase lantus to 38 units qam, 40 units qpm -added SSI Anemia - had normal iron panel, B12/folate earlier this year Code status: full code COVID NEG PT c/s--on hold. full code. CCM, cardiol, ID following w.. us.
[2019-09-03] MEDS: cefTRIAXone\\ROCEPHIN 2 GM in Sodium Chloride 0.9% 100 ML IVPB SCH (14:20)
--- NOTE | 2019-09-03 14:36 | RAD ---
TWO VIEWS RIGHT ANKLE: HISTORY: Swelling and pain. COMPARISON: None FINDINGS: Internal fixation hardware is noted at the level of the distal tibia and fibula. There is a fracture involving the mid aspect of the internal fixation plate at the level of the distal fibula. The inferior most screw appears to have backed out of the plate. There is nonspecific scleros is involving the distal tibia. Presumed sclerosis of the inferior syndesmosis There is sclerosis of the talar dome There is distal lower extremity soft tissue swelling. IMPRESSION: Soft tissue swelling with possible loosening and/or infection of the internal fixation high rdware. Transcribed Date/Time: 09/03/2019 3:16 PM
--- NOTE | 2019-09-03 15:04 | PRG ---
DATE OF SERVICE: 09/03/2019 SUBJECTIVE: Patient was seen and examined in ICU. Patient was transferred to ICU because of atrial fibrillation and she was intubated because she was having wheezing and respiratory distress. No family members at the bedside. She is making urine. Creatinine was better. OBJECTIVE: GENERAL: This is an obese female, intubated, seen in ICU. VITAL SIGNS: Temperature 98.3, pulse is 89, respiratory rate 14, blood pressure 193/64. HEENT: Intubated. CVS: S1, S2 heard. RESPIRATORY: Crackles present and wheezing. GI: Abdomen is obese. MUSCULOSKELETAL: No edema. DERMATOLOGIC/NEUROLOGIC: Intubated. LABORATORY DATA: Potassium 3.4, BUN is 46, and creatinine is 1.7 from 2.5 and was 3.1 on admission. ASSESSMENT AND PLAN: 1. Acute kidney injury on chronic kidney disease stage 3 with improvement in renal function and good urine output. Okay to reduce IV fluids if having cardiorespiratory distress. 2. Mild hyperkalemia, better. 3. Acidosis, now alkalosis. 4. Hypertension. 5. Obesity. 6. Overall renal function is stable and getting better. Avoid nephrotoxins. Continue supportive care. Okay to reduce IV fluids if needed. Job ID: [id number]
--- NOTE | 2019-09-03 15:30 | PRG ---
DATE OF SERVICE: 09/03/2019 SUBJECTIVE: Mary Burger developed rapid atrial fibrillation without developed tachypnea, hypoxemia, or respiratory distress. She is transferred to critical care unit. BiPAP did not help, so I recommend intubation. OBJECTIVE: VITAL SIGNS: Heart rate was 120 when I saw her and it was 170 earlier. Her hemodynamics are otherwise stable, respiratory rate was in the 30s. LUNGS: Remarkable for crackles, but distant breath sounds. HEART: Irregularly irregular. ABDOMEN: Soft. EXTREMITIES: Without asymmetry or edema. LABORATORY DATA: White count 10.9, hemoglobin 11.0, and platelets 217. Sodium 139, potassium 3.4, chloride 94, bicarb 35, BUN 46, and creatinine 1.7. Chest radiograph shows diffuse infiltrates. IMPRESSION: 1. Atrial fibrillation induced pulmonary edema. 2. Streptococcus gallolyticus. The organism was finally speciated and is not pneumococcus. This leads credence to the argument that she has actually endocarditis. I have recommended intubation. CRITICAL CARE TIME: 30 minutes, independent on the procedures. Job ID: [id number]
--- NOTE | 2019-09-03 19:17 | PRG ---
DATE OF SERVICE: 09/03/2019 SUBJECTIVE: Ms. Burger had to be intubated for respiratory failure. This is the third time she is in the ICU. She is sedated right now, not on pressors. OBJECTIVE: VITAL SIGNS: Temperature is normal, BP 98/74, pulse is 96 to 110, 50% FiO2. HEENT: Ocular movements are cannot be tested right now because of sedation. LUNGS: With coarse breath sounds. HEART: S1 and S2. Diminished heart sounds. No obvious murmurs. ABDOMEN: Soft, nondistended. EXTREMITIES: No edema. LABORATORY DATA: White cell count 10.9, hemoglobin 11, platelets 217 with 84% neutrophils, pH 7.49, pCO2 42, and PO2 69. Sodium 139, creatinine 1.7, which is improved from admission. AST 36, ALT 29. Streptococcus gallolyticus two sets of blood cultures. Ankle x-ray with soft tissue swelling, possible infection of internal fixation hardware. Chest x-ray, opacification of lung parenchyma bilaterally. Right-sided internal jugular venous catheter. ASSESSMENT AND DISCUSSION: Type 2 diabetes, hypertension, chronic obstructive pulmonary disease, aortic valve replacement with tissue valve Streptococcus gallolyticus bacteremia, right ankle pain. Main concern again with endocarditis of the aortic valve with septic dissemination to the right ankle remains. SHILPA, I think is going to be performed tomorrow to clarify this issue. She also has a hip prosthesis, and we will have to look into that, but when I interviewed her yesterday, she did not have any pain there. The Streptococcus gallolyticus that she is infected with has a low AJIT for penicillin and Rocephin should suffice to treat this infection. Job ID: [id number]
[2019-09-03] MEDS: traMADol HCl 50 MG TAB PO SCH (19:46)
[2019-09-03] MEDS: Gabapentin 300 MG CAP PO SCH (19:46)
[2019-09-03] MEDS: Insulin Glargine 40 UNITS in Pre-Filled Syringe 1 EACH SC SCH (20:22)
[2019-09-03] MEDS ORDERED: Atorvastatin Calcium 40 MG TAB PO SCH (21:00)
[2019-09-04] MEDS: Propofol 1,000 MG/100 ML VIAL IV PRN ×3 (00:36→17:34)
[2019-09-04 05:05] LABS: #Basophils 0.2 thou/uL (0.0-0.2); #Lymphocytes 0.3 thou/uL (1.20-3.40); #Monocytes 0.4 thou/uL (0.11-0.59); #Neutrophils 7.4 thou/uL (1.40-6.50); %Eosinophils 0.4 % (0.0-10.0); %Lymphocytes 3.8 % (21.0-51.0); %Monocytes 4.7 % (0.0-10.0); %Neutrophils 89.2 % (42.0-75.0); Hemoglobin 8.9 g/dL (12.0-16.0); Mean Corpuscular HGB CONC 30.6 g/dL (32.0-36.0); Mean Corpuscular Hemoglobin 29.1 pg (27.0-31.0); Mean Corpuscular Volume 95.2 fL (78.0-98.0); Mean Platelet Volume 7.6 fL (7.4-10.4); Platelet Count 199 thou/uL (130-400); RBC Distribution Width 13.2 % (11.5-14.5); Red Blood Cell (RBC) Count 3.04 mill/uL (4.20-5.40); White Blood Cell (WBC) Count 8.3 thou/uL (4.8-10.8)
[2019-09-04 05:17] LABS: Anion Gap 12 mmol/L (10-20); BUN (Urea Nitrogen) 59 mg/dL (9.8-20.1); Calc. Creatinine Clearance 33 mL/min (70-130); Calcium 7.9 mg/dL (7.8-10.44); Carbon Dioxide 34 mmol/L (23-31); Chloride 99 mmol/L (98-107); Estimated GFR-MDRD 23; Glucose 125 mg/dL (83-110); Magnesium 2.7 mg/dL (1.6-2.6); Potassium 4.2 mmol/L (3.5-5.1); Sodium 141 mmol/L (136-145)
[2019-09-04] MEDS: Levothyroxine 100 MCG SDV SLOW IVP SCH (05:45)
[2019-09-04] MEDS: methylPREDNISolone Sod Succ 40 MG VIAL IVP SCH ×3 (05:45→17:35)
[2019-09-04] MEDS ORDERED: Levothyroxine Sodium 200 MCG VIAL IVP SCH (06:00)
[2019-09-04] MEDS ORDERED: Levothyroxine Sodium 25 MCG TAB PO SCH (06:00)
[2019-09-04] MEDS ORDERED: Levothyroxine Sodium 112 MCG TAB PO SCH ×2 (06:00)
[2019-09-04 07:16] LABS: Actual Bicarbonate (HCO3a) 28.6 mEq/L (22-28); Base Excess (BEa) 4.6 mEq/L (-2.0 to +3.0); CO2 Tension 40.3 mmHg (35.0-45.0); Calcium, Ionized (arterial) 1.07 mmol/L (1.12-1.30); Carboxyhemoglobin (COHb) 0.8 gm% (0.0-3.0); Hemoglobin (Hb) 11.2 g/dL (12.0-16.0); O2 Tension (PaO2), arterial 79.1 mmHg (> 70.0); pH, Arterial 7.47 (7.35-7.45)
[2019-09-04] MEDS: Mometasone 200 MCG/Formoterol 5 MCG 120 PUFF INHALER INH SCH ×2 (07:17→18:47)
[2019-09-04 07:19] LABS: Puncture Site LRA
[2019-09-04 07:20] LABS: ALV-art Gradient 227.025 (0-20)
--- NOTE | 2019-09-04 07:22 | OP ---
DATE OF PROCEDURE: 09/03/2019 Ms. Burger was on BiPAP. Her upper airway was sprayed with Hurricaine spray. Bronchoscope was brought to the bedside. A 7.5 endotracheal tube was inserted over the bronchoscope. Bronchoscope was introduced into her mouth with a bite block in place. Her vocal cords were normal and easily visualized. She was quickly fiberoptically intubated in the sitting position and connected to mechanical ventilation. She was given 2 mg of Versed when she was intubated and connected to propofol afterwards. She also received a paralytic. She will have a transesophageal echo in the morning. She will remain mechanically ventilated for now. I met with the and answered all of his questions. Job ID: [id number]
--- NOTE | 2019-09-04 08:23 | PRG ---
DATE OF SERVICE: 09/04/2019 35 minutes of critical time. SUBJECTIVE: This patient remains on mechanical ventilation after being intubated yesterday evening. She will awaken fairly easily. A SHILPA is expected later today to rule out endocarditis. OBJECTIVE: VITAL SIGNS: Temperature 98.7, pulse 72, blood pressure 138/74. She is on a propofol drip for sedation. HEENT: Unremarkable. NECK: No JVD. LUNGS: Some crackles in the bases. CARDIOVASCULAR: S1 and S2. Regular sinus. ABDOMEN: Soft and nontender. EXTREMITIES: No clubbing, cyanosis, or edema. LABORATORY DATA: PH 7.47, pCO2 of 40, pO2 of 79 on SIMV rate 14, tidal volume 500, PEEP 8, pressure support 10, FiO2 of 50%. Sodium 141, potassium 4.2, chloride 99, CO2 of 34, BUN 59, creatinine 2.1, glucose 125. White blood cell count 8.3, hematocrit 29, and platelet count 199. Her x-ray from yesterday showed fairly marked pulmonary infiltrate on the right and left upper lobe in an alveolar-type pattern. ASSESSMENT: 1. Acute hypoxic respiratory failure requiring mechanical ventilation. 2. Rule out endocarditis. 3. Status post aortic valve replacement. 4. History of underlying chronic obstructive pulmonary disease. PLAN: 1. We have intubated today. 2. Decrease PEEP and FiO2. 3. Continue antibiotic therapy. 4. Continue low-dose steroids. 5. Change nebulization treatments to every 4 hours. Job ID: [id number]
[2019-09-04] MEDS ORDERED: Vecuronium 10 MG VIAL IV SCH (09:30)
[2019-09-04] MEDS: Amlodipine 5 MG TAB PO SCH (09:41)
[2019-09-04] MEDS: Sodium Chloride 0.9% 1,000 ML IV SCH ×2 (09:42→17:36)
[2019-09-04] MEDS: Carvedilol 6.25 MG TAB PO SCH ×2 (09:43→21:32)
[2019-09-04] MEDS: Famotidine/PF 20 mg/2ml Vial SLOW IVP SCH (09:43)
[2019-09-04] MEDS: Polyethylene Glycol 3350 17 GM Packet PO SCH (09:57)
[2019-09-04] MEDS: Insulin Glargine 38 UNITS in Pre-Filled Syringe 1 EACH SC SCH (10:27)
--- NOTE | 2019-09-04 11:16 | PRG ---
DATE OF SERVICE: 09/04/2019 SUBJECTIVE: A 74-year-old female, being seen for acute kidney injury. The patient is resting. OBJECTIVE: General: The patient is resting. VITAL SIGNS: Afebrile, pulse 71, breathing 16, and blood pressure 145/72. HEENT: Head normocephalic and atraumatic. Eyes intact, no ulcers. Nose intact, no ulcers. Ears intact, no ulcers. Neck: Supple. No JVD. Chest: Symmetrical and clear. Cardiovascular: Shows S1 and S2, no rub, no murmur. Gastrointestinal: Abdomen is soft, bowel sounds positive. Extremities: Show no edema or ulcers. Skin: Shows no rash or petechiae. Musculoskeletal: Shows no joint swelling or stiffness. Genitourinary: Shows no Moss or CVA tenderness. Neurologic: The patient is resting. LABORATORY DATA: Reviewed. ASSESSMENT AND PLAN: 1. Acute kidney injury with chronic kidney disease due to cardiorenal syndrome, overall renal function is stable. 2. Hypertension, stable. 3. Anemia, stable. Medication based on GFR appropriate. No indication for dialysis. Job ID: [id number]
[2019-09-04] MEDS ORDERED: Sterile Water 10 ML ONE (12:10)
--- NOTE | 2019-09-04 13:39 | PDOC.HOSPP ---
- Subjective Encounter Date: 09/04/19 Encounter Time: 10:20 Subjective: remained on the vent --SIMV; TF, 144/80 in hte moniotro, pulse of 74. - Objective Vital Signs & Weight: Vital Signs (12 hours) Temp Pulse Resp BP Pulse Ox 09/04/19 10:27 71 144/68 H 09/04/19 10:26 72 14 100 09/04/19 09:43 145/72 H 09/04/19 09:41 75 145/72 H 09/04/19 07:17 74 14 99 09/04/19 07:08 77 149/79 H 09/04/19 06:00 16 09/04/19 04:20 65 15 96 09/04/19 04:00 98.7 F 15 09/04/19 02:33 64 118/73 09/04/19 02:00 14 Weight Admit Weight 201 lb 8.04 oz Weight 201 lb 8.04 oz Most Recent Monitor Data Heart Rate from ECG 67 NIBP 145/72 NIBP BP-Mean 96 Respiration from ECG 13 SpO2 97 I&O: 09/03/19 09/04/19 09/05/19 06:59 06:59 06:59 Intake Total 2306 2517.7 Output Total 1375 680 Balance 931 1837.7 Result Diagrams: 09/04/19 04:36 09/04/19 04:36 Additional Labs: Accuchecks 09/03/19 09/03/19 09/03/19 20:26 16:37 13:40 POC Glucose 81 68 L 70 09/03/19 09:37 POC Glucose 135 H Hospitalist ROS - Medication Medications: Active Medications Generic Name Dose Route Start Last Admin Trade Name Freq PRN Reason Stop Dose Admin Acetaminophen 650 mg 08/31/19 01:13 09/02/19 19:53 Tylenol PO 650 mg Q4H PRN Administration Headache/Fever/Mild Pain (1-3) Albuterol/Ipratropium 3 ml 09/04/19 10:30 09/04/19 10:26 Duoneb NEB 3 ml [id number] FILIPPO Administration Amlodipine Besylate 5 mg 09/03/19 09:00 09/04/19 09:41 Norvasc PO 5 mg DAILY FILIPPO Administration Carvedilol 12.5 mg 09/03/19 09:00 09/04/19 09:43 Coreg PO 12.5 mg BID FILIPPO Administration Famotidine 20 mg 08/31/19 09:00 09/04/19 09:43 Pepcid SLOW IVP 20 mg QAM FILIPPO Administration Hydralazine HCl 10 mg 09/02/19 19:34 09/03/19 09:38 Apresoline SLOW IVP 10 mg Q4H PRN Administration SBP GREATER THAN 150 Insulin Glargine 40 units/ 0.4 mls @ 0 mls/hr 09/01/19 21:00 09/03/19 20:22 Miscellaneous Medication SC Not Given HS FILIPPO Insulin Glargine 38 units/ 0.38 mls @ 0 mls/hr 09/02/19 09:00 09/04/19 10:27 Miscellaneous Medication SC 0.38 mls QAM FILIPPO Administration Ceftriaxone Sodium 2 gm/ 100 mls @ 200 mls/hr 09/03/19 14:00 09/03/19 14:20 Sodium Chloride IVPB 100 mls Q24HR FILIPPO Administration Diltiazem HCl 125 mg/ Sodium 125 mls @ 5 mls/hr 09/03/19 06:30 09/03/19 14:20 Chloride IVPB 125 mls INF FILIPPO Administration Protocol 5 MG/HR Sodium Chloride 1,000 mls @ 100 mls/hr 09/03/19 12:45 09/04/19 09:42 Normal Saline 0.9% IV 1,000 mls .Q10H FILIPPO Administration Insulin Human Lispro 0 units 09/02/19 15:25 09/02/19 21:13 Humalog SC 4 unit .MODERATE SLIDING SC PRN Administration Moderate Correctional Scale Levothyroxine Sodium 50 mcg 09/04/19 06:00 09/04/19 05:45 Synthroid SLOW IVP 50 mcg 0600 FILIPPO Administration Lorazepam 2 mg 09/03/19 11:10 09/04/19 12:46 Ativan SLOW IVP 10/03/19 11:10 2 mg Q1H PRN Administration Breakthrough agitation Methylprednisolone Sodium Succinate 20 mg 09/03/19 12:00 09/04/19 12:34 Solu-Medrol IVP 20 mg Q6HR FILIPPO Administration Mometasone Furoate/Formoterol Fumar 2 puff 08/31/19 18:30 06/15/20 07:17 Dulera 200 Mcg/5 Mcg Inhaler INH 2 puff BID-RT FILIPPO Administration Ondansetron HCl 4 mg 09/03/19 08:30 09/03/19 08:18 Zofran IVP 4 mg Q6H PRN Administration Nausea/Vomiting Polyethylene Glycol 17 gm 09/03/19 09:00 09/04/19 09:57 Miralax PO 17 gm DAILY FILIPPO Administration Propofol 1,000 mg 09/03/19 11:10 09/04/19 09:42 Diprivan IV 10/03/19 11:10 1,000 mg INF PRN Administration TO ACHIEVE GOAL RASS Protocol Sertraline HCl 50 mg 09/03/19 09:00 09/04/19 09:41 Zoloft PO 50 mg DAILY FILIPPO Administration Sodium Chloride 10 ml 08/31/19 09:00 09/04/19 09:57 Flush - Normal Saline IVF 10 ml Q12HR FILIPPO Administration Sodium Chloride 10 ml 08/31/19 01:30 09/03/19 07:23 Flush - Normal Saline IVF 10 ml PRN PRN Administration Saline Flush Vecuronium [place] 10 mg 09/04/19 09:30 09/04/19 12:46 Norcuron IV 09/04/19 16:00 10 mg ONE FILIPPO Administration - Exam General Appearance: ill appearing General - other findings: vent, sedated Neck: supple Heart: irregular Respiratory: no wheezes, normal chest expansion, rales Gastrointestinal: soft, non-distended, normal bowel sounds, no rigidity Neurological: no focal deficits Psychiatric: not oriented Hosp A/P - Plan Note edited to reflect today's care of plan. 74 year old female patient who presented with diabetes, hypothyroidism that presentedwith AMS and hypoxia. She reports having two negative COVID tests. Acute hypoxic respiratory failure - requiring intubation - desat, tachycadia, resp..alkalosis; tachypnea -- code green -- to the unit--- intubated on . - on propofol - switch to IV steroids 60 mg IV --------------->20 IV - continue duoneb q4 hours, albuterol q2 hours prn - continue dulera bid - continue ceftriaxone - troponin up to 0.5, will repeat. Check ECHo -------------->done on 09/01 - Strep gallolyytics bacteremia Strep gallolyytics sens to CTX Prob Aortic valve Infective endocarditis -- given the fever etc.. -- [echo report pending] -reviewed ID and cardiology note -cw CTX for 6 weeks. -as bl sheryl done on - will repeat for follow up - --needs central/picc line for 6 wks abx-- will address-on wednesday R. ankle swelling - start w.. Xray and sed/crp to make sure no occult process going on. Tachycardia --improved w.. addressing hypoxia and being sedated. -not on any drip -cw coreg -dc norvasc given R. ankle swelling ALYX/CKD3 - creatinine improved down to 2.8 with fluids------>1.7. Hyponatremia - resolved Type II diabetes - blood sugars 300-400 - increase lantus to 38 units qam, 40 units qpm -added SSI Anemia - had normal iron panel, B12/folate earlier this year Code status: full code COVID NEG PT c/s--on hold. full code. CCM, cardiol, ID following w.. . plan for SHILPA today. needs likely PICC line for 6 wks abx course. repeat follow up culture - NGSF. /no growth so far.
[2019-09-04 13:50] VITALS: BMI 34.5
[2019-09-04] MEDS: cefTRIAXone\\ROCEPHIN 2 GM in Sodium Chloride 0.9% 100 ML IVPB SCH (13:58)
--- NOTE | 2019-09-04 17:12 | EKG ---
Test Reason : TACHYCARDIA Blood Pressure : / mmHG Vent. Rate : 172 BPM Atrial Rate : 153 BPM P-R Int : 000 ms QRS Dur : 086 ms QT Int : 286 ms P-R-T Axes : 000 -04 186 degrees QTc Int : 483 ms Atrial fibrillation with rapid ventricular response Abnormal ECG Confirmed by DION JOHNSON ([id number]) on 09/04/2019 5:11:53 PM Referred By: MALVIN Confirmed By:DION JOHNSON
--- NOTE | 2019-09-04 17:14 | PRG ---
DATE OF SERVICE: 09/04/2019 SUBJECTIVE: Ms. Burger is intubated. OBJECTIVE: VITAL SIGNS: Her pulse 63, BP 135/73, temperature 99, and her O2 saturations were 95, and FiO2 is 40. GENERAL: The patient is sedated. LUNGS: There are bilateral symmetric lung sounds, somewhat coarse. HEART: S1 and S2. ABDOMEN: Soft abdomen. EXTREMITIES: Cannot test motion because of sedation. LABORATORY DATA: White cell count is 8.3, hemoglobin 8.9, platelets 199, and 89% neutrophils. Creatinine is at 2.11. CRP 23.68. Repeat blood culture, no growth. ASSESSMENT AND PLAN: The SHILPA showed what Dr. Angelo described as a perivalvular abscess with endocarditis and it looks like she is being transferred to [facility] for surgical intervention. She will continue on Rocephin for protracted period of time if she survived this event. Job ID: [id number]
[2019-09-04 21:36] VITALS: BP 139/75
[2019-09-04] MEDS: Insulin Glargine 40 UNITS in Pre-Filled Syringe 1 EACH SC SCH (23:20)
[2019-09-05] MEDS: methylPREDNISolone Sod Succ 40 MG VIAL IVP SCH ×2 (00:02→06:21)
[2019-09-05] MEDS: Propofol 1,000 MG/100 ML VIAL IV PRN ×2 (00:53→12:38)
[2019-09-05] MEDS: Sodium Chloride 0.9% 1,000 ML IV SCH (04:32)
[2019-09-05 04:53] LABS: #Lymphocytes 0.5 thou/uL (1.20-3.40); #Monocytes 0.4 thou/uL (0.11-0.59); %Basophils 0.1 % (0.0-1.0); %Eosinophils 0.2 % (0.0-10.0); %Lymphocytes 5.6 % (21.0-51.0); %Monocytes 4.9 % (0.0-10.0); %Neutrophils 89.3 % (42.0-75.0); Hemoglobin 8.8 g/dL (12.0-16.0); Mean Corpuscular HGB CONC 32.2 g/dL (32.0-36.0); Mean Corpuscular Hemoglobin 30.2 pg (27.0-31.0); Mean Corpuscular Volume 93.8 fL (78.0-98.0); Mean Platelet Volume 7.8 fL (7.4-10.4); Platelet Count 241 thou/uL (130-400); RBC Distribution Width 13.4 % (11.5-14.5)
[2019-09-05 05:20] LABS: Anion Gap 12 mmol/L (10-20); BUN (Urea Nitrogen) 60 mg/dL (9.8-20.1); Calc. Creatinine Clearance 37 mL/min (70-130); Calcium 7.9 mg/dL (7.8-10.44); Carbon Dioxide 30 mmol/L (23-31); Chloride 103 mmol/L (98-107); Estimated GFR-MDRD 26; Glucose 130 mg/dL (83-110); Magnesium 2.6 mg/dL (1.6-2.6); Potassium 3.8 mmol/L (3.5-5.1); Sodium 141 mmol/L (136-145)
[2019-09-05] MEDS: Levothyroxine 100 MCG SDV SLOW IVP SCH (06:19)
[2019-09-05] MEDS ORDERED: Sodium Chloride 0.9% 1,000 ML IV SCH (07:42)
--- NOTE | 2019-09-05 07:52 | RAD ---
EXAM: Single view of the chest HISTORY: Pneumonia COMPARISON: 09/03/2019 FINDINGS: Single view of the chest shows an enlarged but stable cardiomediastinal silhouette. The pa tient is status post sternotomy. The central venous catheter is unchanged in position. An endotracheal tube is seen with its tip approximately 2.2 cm from the jeanie. An NG tube is seen in th e stomach. Diffuse mixed alveolar/interstitial opacities are stable. The bones are unremarkable. IMPRESSION: 1. Diffuse stable mixed infiltrates 2. Appropriate position of lines and tubes
--- NOTE | 2019-09-05 07:54 | OP ---
DATE OF PROCEDURE: 09/04/2019 PROCEDURE PERFORMED: Transesophageal echocardiogram. INDICATIONS: The patient is a 74-year-old woman with sepsis. DESCRIPTION OF PROCEDURE: The patient was taken to PACU. The patient was sedated and paralyzed. A transesophageal probe was placed in distal esophagus and stomach. Echocardiographic images were obtained. The transesophageal probe was removed. FINDINGS: 1. Normal left ventricular systolic function. 2. Prosthetic aortic valve. 3. Aortic abscess noted. 4. Mild to moderate mitral regurgitation. 5. Atherosclerotic debris in the descending aorta. IMPRESSION: Aortic abscess. Job ID: [id number]
--- NOTE | 2019-09-05 08:07 | PRG ---
DATE OF SERVICE: 09/05/2019 35 minutes of critical care time. SUBJECTIVE: The patient remains on mechanical ventilation. She apparently has a perivalvular aortic valve abscess and is being transferred to [facility] when a bed becomes available. OBJECTIVE: VITAL SIGNS: Temperature 98.5, pulse 99, blood pressure 138/75, O2 saturation 100%. 24-hour intake 2628, output 1425. HEENT: Unremarkable. NECK: No adenopathy or JVD. LUNGS: Crackles anteriorly bilaterally. CARDIAC: S1, S2. Regular. ABDOMEN: Soft. EXTREMITIES: No edema. LABORATORY DATA: White blood cell count 9, hematocrit 27.2, and platelet count 241. ABG pending. Sodium 141, potassium 3.8, chloride 103, CO2 of 30, BUN 60, creatinine 1.8, and glucose 130. IMAGING DATA: Chest x-ray shows bilateral pulmonary edema. ET tube is in good. ASSESSMENT: 1. Acute respiratory failure, requiring mechanical ventilation. 2. Endocarditis. 3. Perivalvular aortic abscess. 4. History of underlying chronic obstructive pulmonary disease. 5. Respiratory failure, requiring mechanical ventilation. PLAN: I am very reluctant to extubate her until we have a further disposition about the valve. I think, she probably went into respiratory failure because of aortic insufficiency. I do not have the echo report back to be able to tell the true numbers as to what is going on. I asked Dr. Pierce to take a look at the echo to see if this is something we could possibly repair here. The patient will continue on Rocephin for IV antibiotic coverage. I have reduced the steroid dose. Job ID: [id number]
[2019-09-05] MEDS: Mometasone 200 MCG/Formoterol 5 MCG 120 PUFF INHALER INH SCH (08:18)
[2019-09-05 08:23] LABS: Actual Bicarbonate (HCO3a) 27.8 mEq/L (22-28); Base Excess (BEa) 3.8 mEq/L (-2.0 to +3.0); CO2 Tension 39.6 mmHg (35.0-45.0); Calcium, Ionized (arterial) 1.09 mmol/L (1.12-1.30); Carboxyhemoglobin (COHb) 0.6 gm% (0.0-3.0); Hemoglobin (Hb) 9.6 g/dL (12.0-16.0); O2 Tension (PaO2), arterial 91.4 mmHg (> 70.0); Potassium - ABG Lab 3.95 mmol/L (3.70-5.30); pH, Arterial 7.46 (7.35-7.45)
[2019-09-05 08:24] LABS: Puncture Site RR
[2019-09-05] MEDS: Amlodipine 5 MG TAB PO SCH (08:29)
[2019-09-05] MEDS: Famotidine/PF 20 mg/2ml Vial SLOW IVP SCH (08:30)
[2019-09-05] MEDS: Carvedilol 6.25 MG TAB PO SCH (08:30)
[2019-09-05] MEDS: Insulin Glargine 38 UNITS in Pre-Filled Syringe 1 EACH SC SCH (08:31)
[2019-09-05] MEDS: Polyethylene Glycol 3350 17 GM Packet PO SCH ×2 (08:31→09:33)
[2019-09-05] MEDS ORDERED: methylPREDNISolone Sod Succ 40 MG VIAL IVP SCH (09:00)
[2019-09-05 13:06] VITALS: TEMP 97.9
--- NOTE | 2019-09-05 13:21 | PRG ---
DATE OF SERVICE: 09/05/2019 SUBJECTIVE: A 74-year-old female, being seen for acute kidney injury. The patient is intubated. OBJECTIVE: GENERAL: The patient is resting. VITAL SIGNS: Afebrile, pulse 75, breathing 16, and blood pressure 149/67. HEENT: Head, normocephalic and atraumatic. Eyes intact, no ulcers. Nose intact, no ulcers. Ears intact, no ulcers. NECK: Supple. No JVD. CHEST: Symmetrical and clear. CARDIOVASCULAR: Shows S1 and S2, no rub, no murmur. GASTROINTESTINAL: Abdomen is soft, bowel sounds positive. EXTREMITIES: Show no edema or ulcers. SKIN: Shows no rash or petechiae. MUSCULOSKELETAL: Shows no joint swelling or stiffness. GENITOURINARY: Shows no Moss or CVA tenderness. NEUROLOGIC: The patient is intubated. LABORATORY DATA: Reviewed. ASSESSMENT AND RECOMMENDATIONS: 1. Chronic kidney disease stage 4, stable. 2. Acute kidney injury, stable. 3. Hypertension, stable. 4. Medication based on GFR, appropriate. No indication for dialysis. Job ID: [id number]
[2019-09-05] MEDS ORDERED: Carvedilol 6.25 MG TAB PO SCH (15:00)
--- NOTE | 2019-09-05 17:51 | DIS ---
DATE OF ADMISSION: 08/31/2019 DATE OF DISCHARGE: 09/05/2019 DISCHARGE DIAGNOSES: 1. Acute hypoxic respiratory failure. 2. Hypothyroidism. 3. Diabetes. 4. Severe chronic obstructive pulmonary disease exacerbation and emphysema, requiring intubation. 5. Strep gallolyticus bacteremia. 6. Aortic valve infective endocarditis. 7. 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 8. Right ankle swelling. 9. Acute kidney injury on chronic kidney disease stage 3. 10. Hyponatremia. 11. Type 2 diabetes mellitus. 12. Anemia of chronic disease with normal iron panel as well as folate and B12 in the normal range. DISCHARGE MEDICATIONS: 1. She will be continuing with ceftriaxone and micafungin. 2. Levothyroxine 137 mcg daily. 3. Ellipta 1 inhalation daily. 4. Lantus 65 units at bedtime. 5. Zoloft 50 mg daily. 6. Gabapentin 800 mg four times a day. 7. Norvasc 5 mg daily. PHYSICAL EXAMINATION: VITAL SIGNS: On the day of discharge, temperature 97.9. She is still on the vent. Pulse 72, blood pressure 149/67, MAP of 94. Planning to transfer to the [facility]. HOSPITAL COURSE: This is a 74-year-old female, admitted with altered mentation and hypoxia. She has a severe underlying COPD. Initially, she required the Levophed. The V/Q scan was negative. She seemed to get better when we transferred to the floor. She did not do very well in terms of oxygen status and requiring to transfer back to the unit. She was intubated shortly after that. Regarding her infective endocarditis, transesophageal echo has been performed on , showing normal left ventricular function and probable perivalvular/ aortic abscess noted. There is moderate mitral regurgitation as well as atherosclerotic debris in the descending aorta and it is prosthetic aortic valve. For this aortic abscess, she is transferred for higher level of care to [facility] [place] today, . The plan was to continue the IV antibiotic of ceftriaxone for 6 weeks. Further management based on the her clinical course at the receiving facility. Job ID: [id number] [facility]
--- NOTE | 2019-09-07 05:53 | PQF ---
JOSE RAFAEL ALANIZ SOUNDARI [id number]- [id number] CLINICAL DOCUMENTATION CLARIFICATION FORM: POST DISCHARGE Addendum to original discharge summary date: ____ Late entry note date: __ DATE: 09/07/2019 ATTN: Morgan Chi Please exercise your independent, professional judgment in responding to the clarification form. Clinical indicators are provided on the bottom of this form for your review In your clinical opinion based on clinical findings below, can you please identify the etilogy of Acute Respiratory Failure if due to: Please check appropriate box(s): [ x] Sepsis [ ] Emphysema [ ] Other diagnosis [ ] Unable to determine For continuity of documentation, please document condition throughout progress notes and discharge summary. Thank You. CLINICAL INDICATORS - SIGNS / SYMPTOMS / LABS Laboratory 08/29 WBC 7.2, Plt count 123, Neutrophils 80.9, Band 14, Lactic acid 0.6 Blood culure 08/29 Postive with Strep Gallolyticus Vital signs 08/29 BP 83/49, Pulse 82, Resp 24, Temp 97.7 ED notes p3 08/30 SIRS scoring: Pt did meet criteria ED notes p13 Septic shock, hypoxia and pneumonia H&P p1 08/30 Dr Zimmerman Altered mental status and oxygen saturation H&P p2 08/30 Dr Zimmerman Septic shock, Pneumonia H&P p1 08/30 Dr Zimmerman Acute on chronic respiratory failure, acute on chronic renal failure and Acute Encephalopathy, Metabolic Discharge summary p1 09/04 Dr Oneal Severe COPD and Emphysema H&P p1 08/30 Dr Zimmerman EMS was contacted due to altered mental status and she was having oxygen saturation in the 70s H&P p2 08/30 Dr Zimmerman in moderate respiratory distress RISK FACTORS H&P p1 08/30 74 year-old Female H&P p1 08/30 DM H&P p1 08/30 HTN H&P p1 08/30 Asthma H&P p2 08/30 Pneumonia Discharge summary p1 09/04 COPD Consult 08/30 - Obesity PN 08/31 CKD stage 3 TREATMENTS: May 25 IV Levophed 250 mls MAY 25 Provetil 2 puff inhaler MAY 25 Albuterol 1.25 mg Neb MAY 25 IV Cefepime 2 gm MAY 25 IV Ceftriaxone 1gm MAY 25 IV Clindamycin 600mg May 25 IV Prednisone 20 mg oral MAY 25 IV Vancomycin 1 mg MAY 25 IVF NS 1L Blood culture ordered 08/29 Respiratory Panel 08/29 Oxygen 3L Respiratory Panel 08/31 Bipap Respiratory Panel 09/02 Mechanical Ventilator Septic workup per oder 08/29 Chest x-ray ordered 08/29 H&P p3 08/30 -Pulmonology consult (This form is maintained as a part of the permanent medical record) 2014 [employer], [employer]. All Rights Reserved [email or web address]
--- NOTE | 2019-09-07 05:54 | PQF ---
JOSE RAFAEL ALANIZ SOUNDARI [id number] [id number]- [id number] CLINICAL DOCUMENTATION CLARIFICATION FORM: POST DISCHARGE Addendum to original discharge summary date: ____ Late entry note date: __ DATE: 09/07/2019 ATTN: Morgan Chi Please exercise your independent, professional judgment in responding to the clarification form. Clinical indicators are provided on the bottom of this form for your review Please check appropriate box(s) to clarify if the following diagnosis has been ruled in or ruled out: Sepsis [ x ] Ruled in diagnosis [ x] Continue to treat [ ] Resolved [ ] Ruled out diagnosis [ ] Cannot rule out diagnosis [ ] Other diagnosis [ ] Unable to determine For continuity of documentation, please document condition throughout progress notes and discharge summary. Thank You. CLINICAL INDICATORS - SIGNS / SYMPTOMS / LABS Laboratory 08/29 WBC 7.2, Plt count 123, Neutrophils 80.9, Band 14, Lactic acid 0.6 Blood culure 08/29 Postive with Strep Gallolyticus Vital signs 08/29 BP 83/49, Pulse 82, Resp 24, Temp 97.7 ED notes p3 08/30 SIRS scoring: Pt did meet criteria ED notes p13 Septic shock, hypoxia and pneumonia H&P p1 08/30 Dr Zimmerman Altered mental status and oxygen saturation H&P p1 08/30 Dr Zimmerman Pt was hypotensive H&P p2 08/30 Dr Zimmerman Septic shock, Pneumonia H&P p1 08/30 Dr Zimmerman Acute on chronic respiratory failure, acute on chronic renal failure and Acute Encephalopathy, Metabolic Consult 08/30 metabolic acidosis Consult 08/30 acute kidney injury related to sepsis RISK FACTORS H&P p1 08/30 74 year-old Female H&P p1 08/30 DM H&P p1 08/30 HTN H&P p2 08/30 Pneumonia Consult 08/30 - Obesity PN 08/31 CKD stage 3 Consult 08/30 Moderate malnutrition DS 09/04 Acute valve infective endocarditis TREATMENTS May 25 IV Levophed 250 mls MAY 25 IV Cefepime 2 gm MAY 25 IV Ceftriaxone 1gm MAY 25 IV Clindamycin 600mg May 25 IV Prednisone 20 mg oral MAY 25 IV Vancomycin 1 mg MAY 25 IVF NS 1L Blood culure ordered 08/29 Respiratory Panel 08/29 Oxygen 3L Respiratory Panel 08/31 Bipap Respiratory Panel 09/02 Mechanical Ventialtor Septic workup per oder 08/29 (This form is maintained as a part of the permanent medical record) 2014 [employer], [employer]. All Rights Reserved [email or web address]
--- NOTE | 2019-09-09 13:01 | EKG ---
Test Reason : SEPSIS Blood Pressure : / mmHG Vent. Rate : 076 BPM Atrial Rate : 076 BPM P-R Int : 170 ms QRS Dur : 088 ms QT Int : 396 ms P-R-T Axes : 006 -05 038 degrees QTc Int : 445 ms Normal sinus rhythm Normal ECG Confirmed by LEWIS ARMENDARIZ DO ([id number]), magazine editor ABRAHAM LAUREANO ([id number]) on 09/09/2019 1:00:29 PM Referred By: Confirmed By:LEWIS ARMENDARIZ DO
== END 2019-09-05 13:00 | disposition short-term general hospital (02) | DRG 871 ==
LOC: ERS 21:54 → CCU 08-31 00:48 → T4-A 08-31 18:22 → CCU 09-01 18:21 → T4-B 09-02 11:38 → 2NO 09-03 06:52 → CCU 09-03 08:03
PROVIDERS: ADMIT Internal Medicine; ATTEND Internal Medicine
PROC: 02HV33Z Insertion of Infusion Device into Superior Vena Cava, Percutaneous Approach (ICD-10-PCS; 2019-08-31)
PROC: 3E043XZ Introduction of Vasopressor into Central Vein, Percutaneous Approach (ICD-10-PCS; 2019-08-31)
PROC: 5A09357 Assistance with Respiratory Ventilation, Less than 24 Consecutive Hours, Continuous Positive Airway Pressure (ICD-10-PCS; 2019-09-01)
PROC: 5A1945Z Respiratory Ventilation, 24-96 Consecutive Hours (ICD-10-PCS; principal; 2019-09-03)
PROC: 0BH18EZ Insertion of Endotracheal Airway into Trachea, Via Natural or Artificial Opening Endoscopic (ICD-10-PCS; 2019-09-03)
PROC: B24BZZ4 Ultrasonography of Heart with Aorta, Transesophageal (ICD-10-PCS; 2019-09-04)
DX: A40.8 Other streptococcal sepsis (principal); J96.01 Acute respiratory failure with hypoxia; J13 Pneumonia due to Streptococcus pneumoniae; I33.0 Acute and subacute infective endocarditis; G93.41 Metabolic encephalopathy; R65.21 Severe sepsis with septic shock; N17.9 Acute kidney failure, unspecified; E87.2 Acidosis; E44.0 Moderate protein-calorie malnutrition; N18.4 Chronic kidney disease, stage 4 (severe); Z20.828 Contact with and (suspected) exposure to other viral communicable diseases; R65.20 Severe sepsis without septic shock; E78.5 Hyperlipidemia, unspecified; E78.00 Pure hypercholesterolemia, unspecified; E03.9 Hypothyroidism, unspecified; M19.90 Unspecified osteoarthritis, unspecified site; Z96.641 Presence of right artificial hip joint; Z96.661 Presence of right artificial ankle joint; D69.6 Thrombocytopenia, unspecified; E88.09 Other disorders of plasma-protein metabolism, not elsewhere classified; E87.5 Hyperkalemia; D63.1 Anemia in chronic kidney disease; E66.9 Obesity, unspecified; I34.0 Nonrheumatic mitral (valve) insufficiency; I13.10 Hypertensive heart and chronic kidney disease without heart failure, with stage 1 through stage 4 chronic kidney disease, or unspecified chronic kidney disease; E11.22 Type 2 diabetes mellitus with diabetic chronic kidney disease; J43.9 Emphysema, unspecified; M79.89 Other specified soft tissue disorders; I48.91 Unspecified atrial fibrillation; Z78.1 Physical restraint status; Z88.0 Allergy status to penicillin; Z95.2 Presence of prosthetic heart valve; Z28.21 Immunization not carried out because of patient refusal; Z88.5 Allergy status to narcotic agent; Z95.1 Presence of aortocoronary bypass graft; Z68.34 Body mass index [BMI] 34.0-34.9, adult; Z79.899 Other long term (current) drug therapy; Z79.51 Long term (current) use of inhaled steroids; Z79.52 Long term (current) use of systemic steroids; Z79.4 Long term (current) use of insulin; Z79.890 Hormone replacement therapy
CPT/HCPCS: 36415; 36416; 36556; 51702; 70450; 71045; 71250; 80048; 80053; 80202; 81003; 81015; 82553; 82805; 83605; 83735; 84443; 84484; 85007; 85014; 85018; 85025; 85027; 85049; 85610; 85652; 85730; 86140; 87040; 87077; 87149; 87186; 87635; 93005; 93010; 93306; 93312; 94002; 94003; 94660; 94664; 96361; 96365; 96367; 96372; 96375; J0360; J0692; J0696; J1644; J1650; J1815; J1940; J2060; J2250; J2405; J2704; J2920; J2930; J3370; J3475; J3490; J7070; J7512; J7620; S0028; U0003